=== PATIENT | female | born 1995 | race Caucasian/White ===

== ENCOUNTER 2020-01-22 09:34 | Observation (INO) ==
[2020-01-22] MEDS ORDERED: DEXAMETHASONE SOD INJ 10 MG/ML VIAL IV ONE (10:01)
[2020-01-22] MEDS ORDERED: ALBUT/IPRATROP 3MG/0.5MG NEB 3 ML VIAL NEB STA (10:02)
--- NOTE | 2020-01-22 10:09 | Emergency Department Note ---
History of Present Illness General Chief complaint: Shortness of Breath/Dyspnea Stated complaint: SOB Time Seen by Provider: 01/22/20 09:44 History of Present Illness Maximum Pain Intensity: 6 This is a 24-year-old female that presents to the emergency department via private vehicle with complaints of "shortness of breath". The patient notes a history of trigeminal neuralgia and asthma. 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 She notes that last evening she began with some rhinorrhea and then this progressed throughout the day causing her at 3 AM today to wake up and no trouble breathing. She notes a barking-like cough and notes trouble breathing secondary to a constriction she feels in the lower throat/neck region. She denies any choking or possible foreign bodies. Patient denies any chest pain but does note some shortness of breath. She notes that the coughing continues. She denies any history of Covid/exposure to Covid that she is aware of. Current discomfort 09/09. Home Medications Home Medications Medication Instructions Recorded Confirmed Type gabapentin 600 mg PO TID 01/22/20 01/22/20 History montelukast 10 mg PO DAILY 01/22/20 01/22/20 History norgestimate-ethinyl estradiol 1 tab PO DAILY 01/22/20 01/22/20 History [Previfem] [id number]-FG-gbfhsjkm-guaifen 2 tab PO Q6H PRN 01/22/20 01/22/20 History [Tylenol Cold and Flu Severe] sertraline [Zoloft] 75 mg PO DAILY 01/22/20 01/22/20 History fluticasone propionate [Flovent 2 inh INHALATION BID PRN 30 Days 01/23/20 Rx HFA] #10.6 g Allergies Allergy/AdvReac Type Severity Reaction Status Date / Time ibuprofen Allergy hives/heart Unverified 01/22/20 10:32 racing Past Med/Surg History Medical History (Updated 01/23/20 @ 16:13 by Taz Santo PA-C) Asthma Trigeminal neuralgia Surgical History No pertinent past surgical history Social History Smoking Status: Never smoker Second Hand Exposure: No; Hx Alcohol Use: No Hx Substance Use: No Preferred Language: Kosovan Communication Ability: Effective Residential Glazier Required: No Beliefs That Will Affect Care: None Current Living Situation: Spouse Feels Safe at Home: Yes Assistive Devices: None Review of Systems A total of 10 systems reviewed and were otherwise negative Physical Exam Vital Signs Vital Signs - 24 hr 01/22/20 16:50 Pulse Rate [Apical] 102 H Respiratory Rate 24 Blood Pressure [Right Arm] 121/68 Blood Pressure Mean [Right Arm] 85 Pulse Oximetry 98 Oxygen Delivery Method Room Air VITAL SIGNS - Vital signs and nursing notes were reviewed. Stable and afebrile. Entry vital signs are positive for that of increased respiratory rate at 30/minute as well as a pulse rate of 111 bpm. GENERAL -24-year-old female appearing her stated age who is in no acute distress. Communicates well with provider and answers questions appropriately. SKIN - Without rashes. HEAD - NC/AT. EYES - PERRL with EOMI bilaterally. Sclera anicteric. EARS - No deformities of external structures noted on gross examination bilat erally. NOSE - Midline and without cyanosis. No epistaxis or purulent drainage noted. Septum midline without deviation or septal hematoma noted. MOUTH/OROPHARYNX - Without perioral cyanosis. Buccal mucosa pink and moist and without leukoplakia. Tongue midline with equal elevation of palate bilaterally. No tonsillar hypertrophy, erythema, or exudates noted. Good dentition noted. NECK - Neck with FROM. Supple to palpation. Mild cobblestoning to the posterior pharynx. The airway is widely patent. No trismus. No drooling. Good lymphadenopathy noted. No nuchal rigidity. LUNGS - Chest wall symmetric without accessory muscle use, intercostals retractions, or central cyanosis. Normal vesicular breath sounds CTA B/L. No wheezing. There is inspiratory stridor noted. CARDIAC - RRR with S1/S2. No murmur, rubs, or gallops appreciated. EXTREMITIES - No clubbing or peripheral cyanosis. No pretibial edema present.+5/5 strength noted in UE/LE bilaterally. NEUROLOGIC - Cranial nerves II through XII grossly intact. Sensory intact to light touch throughout. PSYCH - A&O, and cooperates fully with examiner. Pt is very pleasant and interacts well with examiner. Course Administered Medications Cetirizine HCl (Cetirizine Hcl 10 Mg Tablet) 10 mg PO QAM MONIQUE Stop: 11/22/20 08:59 Last Admin: 01/23/20 08:27 Dose: 10 mg Documented by: [id number] Epinephrine (Racepinephrine 2.25% Nebu Soln 0.5 Ml Vial) 0.5 ml NEB Q4R MONIQUE Stop: 02/21/20 20:44 Last Admin: 01/23/20 15:50 Dose: 0.5 ml Documented by: [id number] Admin: 01/23/20 11:12 Dose: 0.5 ml Documented by: [id number] Admin: 01/23/20 07:13 Dose: 0.5 ml Documented by: [id number] Admin: 01/23/20 03:00 Dose: 0.5 ml Documented by: [id number] Admin: 01/22/20 22:54 Dose: 0.5 ml Documented by: [id number] Admin: 01/22/20 20:50 Dose: 0.5 ml Documented by: [id number] Fluticasone/Vilanterol (Fluticasone/Vilanterol 100/25mcg 14 Puffs/Inhaler) 1 puffs INH DAILY MONIQUE; Protocol Stop: 02/22/20 11:29 Last Admin: 01/23/20 13:10 Dose: 1 puffs Documented by: [id number] Gabapentin (Gabapentin 600 Mg Tab) 600 mg PO TID [facility] Stop: 02/21/20 20:59 Last Admin: 01/23/20 13:10 Dose: 600 mg Documented by: [id number] Admin: 01/23/20 08:27 Dose: 600 mg Documented by: [id number] Admin: 01/22/20 22:41 Dose: 600 mg Documented by: [id number] Guaifenesin/Codeine Phosphate (Guaifenesin/Codeine 200mg/20mg 10ml Udc) 10 ml PO Q4H PRN PRN Reason: Cough Stop: 02/21/20 20:36 Last Admin: 01/23/20 07:02 Dose: 10 ml Documented by: [id number] Famotidine 20 mg/ Syringe 5 mls @ 2.5 mls/min IV BID MONIQUE Stop: 02/21/20 20:59 Last Admin: 01/23/20 08:32 Dose: 2.5 mls/min Documented by: [id number] Admin: 01/22/20 22:40 Dose: 2.5 mls/min Documented by: [id number] Menthol (Cough Drop (Sugar Free) Alma 24 Alma/1 Box) 1 alma BUCCAL PRN PRN PRN Reason: Sore Throat Stop: 02/22/20 06:50 Last Admin: 01/23/20 07:02 Dose: 1 alma Documented by: [id number] Miscellaneous (*Previfem*Order Awaiting Action) 1 ea N/A QS MONIQUE Stop: 02/22/20 00:00 Last Admin: 01/23/20 07:45 Dose: Not Given Documented by: [id number] Admin: 01/23/20 07:02 Dose: Not Given Documented by: [id number] Montelukast Sodium (Montelukast Sodium 10 Mg Tablet) 10 mg PO DAILY MONIQUE Stop: 02/22/20 08:59 Last Admin: 01/23/20 08:27 Dose: 10 mg Documented by: [id number] Sertraline HCl (Sertraline Hcl 50 Mg Tablet) 75 mg PO DAILY MONIQUE Stop: 02/22/20 08:59 Last Admin: 01/23/20 09:00 Dose: 75 mg Documented by: [id number] Discontinued Medications Albuterol (Albut/Ipratrop 3mg/0.5mg Neb 3 Ml Vial) 3 ml NEB NOW STA Stop: 01/22/20 10:03 Last Admin: 01/22/20 13:57 Dose: Not Given Documented by: [id number] Cetirizine HCl (Cetirizine Hcl 10 Mg Tablet) 10 mg PO NOW ONE Stop: 01/22/20 20:45 Last Admin: 01/22/20 22:40 Dose: 10 mg Documented by: [id number] Dexamethasone (Dexamethasone Sod Inj 10 Mg/Ml Vial) 10 mg IV NOW ONE Stop: 01/22/20 10:02 Last Admin: 01/22/20 10:48 Dose: 10 mg Documented by: [id number] Epinephrine (Racepinephrine 2.25% Nebu Soln 0.5 Ml Vial) 0.5 ml NEB NOW STA Stop: 01/22/20 13:57 Last Admin: 01/22/20 13:58 Dose: 0.5 ml Documented by: [id number] Epinephrine (Racepinephrine 2.25% Nebu Soln 0.5 Ml Vial) 0.5 ml NEB NOW STA Stop: 01/22/20 13:59 Last Admin: 01/22/20 14:11 Dose: 0.5 ml Documented by: [id number] Sodium Chloride (Nss 1000ml) 1,000 mls @ 999 mls/hr IV .Q1H1M MONIQUE Stop: 01/22/20 11:15 Last Infusion: 01/22/20 11:42 Dose: 0 mls/hr Documented by: [id number] Admin: 01/22/20 10:49 Dose: 999 mls/hr Documented by: [id number] Magnesium Sulfate/Dextrose (Magnesium Sulfate / D5w) 1 gm in 100 mls @ 50 mls/hr IV Q2H MONIQUE Stop: 01/23/20 00:59 Last Infusion: 01/23/20 02:45 Dose: 0 mls/hr Documented by: [id number] Admin: 01/23/20 00:34 Dose: 50 mls/hr Documented by: [id number] Infusion: 01/23/20 00:34 Dose: 50 mls/hr Documented by: [id number] Admin: 01/22/20 22:42 Dose: 50 mls/hr Documented by: [id number] Influenza Virus Vaccine Quadrival (Influenza Virus Quad Vaccine 0.5 Ml Syr) 0.5 ml IM .ONCE ONE Stop: 01/23/20 09:06 Last Admin: 01/23/20 13:12 Dose: 0.5 ml Documented by: [id number] Ioversol (Ioversol 100ml) 93 ml IV ONCE ONE Stop: 01/22/20 15:24 Last Admin: 01/22/20 15:24 Dose: 93 ml Documented by: [id number] Pneumococcal Polyvalent Vaccine (Pneumococcal Polysaccharides 25 Mcg/0.5 Ml Vial/Syr) 25 mcg IM .ONCE ONE Stop: 01/23/20 09:06 Last Admin: 01/23/20 13:11 Dose: 25 mcg Documented by: [id number] Medical Decision Making Laboratory Data Result diagrams: 01/22/20 10:55 01/22/20 10:55 Lab Results 01/22/20 01/22/20 01/22/20 Range/Units 10:55 10:55 10:55 WBC 9.47 (4.8-10.8) K/uL RBC 4.58 (4.2-5.4) M/uL Hgb 13.9 (12.0-16.0) g/dL Hct 41.1 (37-47) % MCV 89.7 (80-100) fL MCH 30.3 (25-34) pg MCHC 33.8 (32-36) g/dL RDW Std Deviation 43.2 (36.4-46.3) fL RDW Coeff of Tammi 13.1 (11.5-14.5) % Plt Count 277 (130-400) K/uL MPV 10.3 (7.4-10.4) fL Immature Gran % (Auto) 0.2 % Neut % (Auto) 73.5 % Lymph % (Auto) 20.4 % [place] % (Auto) 5.0 % Eos % (Auto) 0.7 % Baso % (Auto) 0.2 % Neut # (Auto) 6.96 H (1.4-6.5) K/uL Lymph # (Auto) 1.93 (1.2-3.4) K/uL [place] # (Auto) 0.47 (0.11-0.59) K/uL Eos # (Auto) 0.07 (0-0.5) K/uL Baso # (Auto) 0.02 (0-0.2) K/uL Immature Gran # (Auto) 0.02 (0.00-0.02) K/uL PT 10.1 (9.0-12.0) Seconds INR 1.0 (0.9-1.1) APTT 27.4 (21.0-31.0) Seconds PTT Ratio 1.0 Sodium 139 (136-145) mmol/L Potassium 3.6 (3.5-5.1) mmol/L Chloride 108 H (98-107) mmol/L Carbon Dioxide 25 (21-32) mmol/L Anion Gap 5.0 (3-11) BUN 10 (7-18) mg/dl Creatinine 0.68 (0.6-1.2) mg/dl Est Cr Clr Drug Dosing Not Reportable Est GFR ( Amer) 141.9 Est GFR (Non-Af Amer) 122.4 BUN/Creatinine Ratio 14.0 (10-20) Glucose 108 H (70-99) mg/dl Calcium 8.6 (8.5-10.1) mg/dl Total Bilirubin 0.4 (0.2-1) mg/dl AST 13 L (15-37) U/L ALT 23 (12-78) U/L Alkaline Phosphatase 102 (45-117) U/L Troponin I < 0.015 (0-0.045) ng/ml Total Protein 7.4 (6.4-8.2) gm/dl Albumin 3.3 L (3.4-5.0) gm/dl Globulin 4.1 H (2.5-4.0) gm/dl Albumin/Globulin Ratio 0.8 L (0.9-2) TSH 1.250 (0.300-4.500) uIu/ml HCG, Qual (Negative) COVID-19 Eval Order COVID-19 PCR (Negative) Nasopharyn COVID-19 PCR 01/22/20 01/22/20 01/22/20 Range/Units 10:55 10:55 10:55 WBC (4.8-10.8) K/uL RBC (4.2-5.4) M/uL Hgb (12.0-16.0) g/dL Hct (37-47) % MCV (80-100) fL MCH (25-34) pg MCHC (32-36) g/dL RDW Std Deviation (36.4-46.3) fL RDW Coeff of Tammi (11.5-14.5) % Plt Count (130-400) K/uL MPV (7.4-10.4) fL Immature Gran % (Auto) % Neut % (Auto) % Lymph % (Auto) % [place] % (Auto) % Eos % (Auto) % Baso % (Auto) % Neut # (Auto) (1.4-6.5) K/uL Lymph # (Auto) (1.2-3.4) K/uL [place] # (Auto) (0.11-0.59) K/uL Eos # (Auto) (0-0.5) K/uL Baso # (Auto) (0-0.2) K/uL Immature Gran # (Auto) (0.00-0.02) K/uL PT (9.0-12.0) Seconds INR (0.9-1.1) APTT (21.0-31.0) Seconds PTT Ratio Sodium (136-145) mmol/L Potassium (3.5-5.1) mmol/L Chloride (98-107) mmol/L Carbon Dioxide (21-32) mmol/L Anion Gap (3-11) BUN (7-18) mg/dl Creatinine (0.6-1.2) mg/dl Est Cr Clr Drug Dosing Est GFR ( Amer) Est GFR (Non-Af Amer) BUN/Creatinine Ratio (10-20) Glucose (70-99) mg/dl Calcium (8.5-10.1) mg/dl Total Bilirubin (0.2-1) mg/dl AST (15-37) U/L ALT (12-78) U/L Alkaline Phosphatase (45-117) U/L Troponin I (0-0.045) ng/ml Total Protein (6.4-8.2) gm/dl Albumin (3.4-5.0) gm/dl Globulin (2.5-4.0) gm/dl Albumin/Globulin Ratio (0.9-2) TSH (0.300-4.500) uIu/ml HCG, Qual Negative (Negative) COVID-19 Eval Order Covid19 Sent to [facility] COVID-19 PCR (Negative) Nasopharyn COVID-19 PCR Cancelled 01/22/20 Range/Units 10:55 WBC (4.8-10.8) K/uL RBC (4.2-5.4) M/uL Hgb (12.0-16.0) g/dL Hct (37-47) % MCV (80-100) fL MCH (25-34) pg MCHC (32-36) g/dL RDW Std Deviation (36.4-46.3) fL RDW Coeff of Tammi (11.5-14.5) % Plt Count (130-400) K/uL MPV (7.4-10.4) fL Immature Gran % (Auto) % Neut % (Auto) % Lymph % (Auto) % [place] % (Auto) % Eos % (Auto) % Baso % (Auto) % Neut # (Auto) (1.4-6.5) K/uL Lymph # (Auto) (1.2-3.4) K/uL [place] # (Auto) (0.11-0.59) K/uL Eos # (Auto) (0-0.5) K/uL Baso # (Auto) (0-0.2) K/uL Immature Gran # (Auto) (0.00-0.02) K/uL PT (9.0-12.0) Seconds INR (0.9-1.1) APTT (21.0-31.0) Seconds PTT Ratio Sodium (136-145) mmol/L Potassium (3.5-5.1) mmol/L Chloride (98-107) mmol/L Carbon Dioxide (21-32) mmol/L Anion Gap (3-11) BUN (7-18) mg/dl Creatinine (0.6-1.2) mg/dl Est Cr Clr Drug Dosing Est GFR ( Amer) Est GFR (Non-Af Amer) BUN/Creatinine Ratio (10-20) Glucose (70-99) mg/dl Calcium (8.5-10.1) mg/dl Total Bilirubin (0.2-1) mg/dl AST (15-37) U/L ALT (12-78) U/L Alkaline Phosphatase (45-117) U/L Troponin I (0-0.045) ng/ml Total Protein (6.4-8.2) gm/dl Albumin (3.4-5.0) gm/dl Globulin (2.5-4.0) gm/dl Albumin/Globulin Ratio (0.9-2) TSH (0.300-4.500) uIu/ml HCG, Qual (Negative) COVID-19 Eval Order COVID-19 PCR NEGATIVE (Negative) Nasopharyn COVID-19 PCR Imaging Data Radiologist's Impression: XR chest 1V portable HISTORY: 24 years-old Female dyspnea, stridor acute shortness of breath with stridor COMPARISON: None TECHNIQUE: Portable AP view of the chest FINDINGS: Cardiomediastinal and hilar silhouettes are within normal limits. No pneu mothorax, pleural effusion, airspace consolidation or overt pulmonary edema. Bones of the chest appear grossly intact. IMPRESSION: No acute process. ACT 112: Negative or not required by law. The above report was generated using voice recognition software. It may contain grammatical, syntax or spelling errors. Electronically signed by: Abdifatah Raymond M.D. 01/22/2020 12:31 PM XR soft tissue neck HISTORY: 24 years-old Female stridor COMPARISON: Chest radiograph of same day TECHNIQUE: 2 views of the soft tissues of the neck FINDINGS: The epiglottis and aryepiglottic folds are unremarkable. No prevertebral soft tissue swelling or opaque foreign body. The imaged lung apices appear clear. Straightening of the normal cervical lordosis. IMPRESSION: Unremarkable appearance of the soft tissues of the neck. ACT 112: Negative or not required by law. The above report was generated using voice recognition software. It may contain grammatical, syntax or spelling errors. Electronically signed by: Abdifatah Raymond M.D. 01/22/2020 12:[address] SCAN OF THE NECK WITH IV CONTRAST CLINICAL HISTORY: Stridor COMPARISON STUDY: Radiographs of the neck dated 01/22/2020. TECHNIQUE: Following the IV administration of 93 cc of Optiray 320, CT scan of the soft tissues of the neck was performed from the skull base to the upper chest. Images are reviewed in the axial, sagittal, and coronal planes. IV contrast was administered without complication. A dose lowering technique was utilized adhering to the principles of ALARA. CT DOSE: 467.98 mGy.cm FINDINGS: Pharynx: The nasopharynx, oropharynx, and laryngeal pharynx are normal in appearance. The pharyngeal airway is widely patent. There is no evidence of mass lesion. The vocal cords are symmetric. The parapharyngeal fat is well maintained. The prevertebral/retropharyngeal soft tissues are within normal limits. The epiglottis is normal. Lymphadenopathy: No cervical lymphadenopathy is seen Thyroid: Normal in size and attenuation. Salivary glands: The parotid and submandibular glands are within normal limits. Brain parenchyma: The visualized brain parenchyma at the skull base is normal in appearance. Vascular structures: Unremarkable. Skeletal structures: Imaged portions of the calvarium at the skull base are within normal limits. The cervical spine appears intact. No lytic or blastic lesion is seen. Orbits: The bony orbits are intact. Orbital contents are normal in appearance. Sinuses and mastoids: Trace mucosal thickening is noted in the left maxillary antrum, the sphenoid sinus, and the left ethmoid sinuses. The mastoid air cells are well pneumatized. Lung apices: Visualized apical lung parenchyma is clear. IMPRESSION: No acute abnormality is identified. ACT 112: Negative or not required by law. Electronically signed by: Kaden Duque M.D. 01/22/2020 3:44 PM MDM Narrative Patient was seen and evaluated as above in room C9. Review was performed of nursing notes and vital signs. After obtaining a thorough history and physical examination the above work up was performed. Patient presents to us today with predominantly inspiratory stridor, cough and rhinorrhea. I will note that the patient is currently being seen during the COVID-19 pandemic. 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 IV access was established. Labs were drawn. Although I did initially ordered DuoNeb I would note that there is no lower lung field wheezing, rather the stridor is coming from the upper airway. Potentially vocal cord in etiology however certainly other more emergent differentials were considered. A chest x- ray and soft tissue neck x-ray was ordered. These are quite unremarkable. This is reassuring. The patient was given a breathing treatment of racemic epinephrine and had near immediate relief. She was feeling much better. There is no leukocytosis or anemia. No emergent metabolic disturbance. test negative. The patient was observed here for about 2 hours post racemic epinephrine treatment and continues to do well but then it seemed as though her symptoms began to return. For this reason she was given a second breathing kahlil atment. She again had great improvement. She was given Decadron here. Options of care were discussed with the patient. Given that she has received 2 rounds of racemic epi here discussed the case with the attending physician and decided upon a CT soft tissue neck with to rule out any other emergent etiology within the airway not observed on physical examination. This was essentially negative. I discussed options with the patient and patient is concerned given her return of symptoms despite treatments that this will likely return home and is worried about her breathing. I believe would be reasonable to have the patient admitted to the hospital for further evaluation and trending her clinical status overnight. Patient is in agreement and would prefer this. I discussed this with the attending physician as well as the hospitalist. Please refer to further documentation regarding her stay. While in the department, I personally reevaluated the patient several times via phone and each time the patient was found to be resting comfortably but did have return of the stridor. The patient was educated upon management, educated upon todays findings/results, educated upon importance of follow up from today's visit, educated upon symptoms in which to return, had questions answered prior to discharge, verbalized understanding, and was discharged home in good condition. Case was discussed with the attending physician. An order was placed for continuous cardiac monitoring. The monitor shows a rate of 111 with sinus tachycardic rhythm. I attest that I have personally reviewed the patient medication list. I attest that I have reviewed the patient's blood pressure and it was found to be [] GCS: 15 In the evaluation and treatment of this patient the following differential diag noses were entertained: [] Impression & Plan Inspiratory stridor, Acute dyspnea, Cough, Rhinorrhea Discharge Plan Visit Data Chief Complaint: Shortness of Breath/Dyspnea Stated Complaint: SOB ED Provider: Russell Quinteros ED Midlevel Provider: Taz Santo Discharge Problem: Inspiratory stridor, Acute dyspnea, Cough, Rhinorrhea Patient Disposition: Admitted As Inpatient Condition: Good Discharge Instructions Interventions: ED Discharge Assessment Last Done: 01/22/20 19:56
[2020-01-22] MEDS ORDERED: SODIUM CHLORIDE 0.9% 1000ML 1,000 ML IV SCH (10:15)
[2020-01-22 11:12] LABS: Basophils # (auto) 0.02 K/uL (0-0.2); Basophils % (auto) 0.2 %; Eosinophils # (auto) 0.07 K/uL (0-0.5); Eosinophils % (auto) 0.7 %; Hematocrit (blood only) 41.1 % (37-47); Hemoglobin 13.9 g/dL (12.0-16.0); Immature Granulocytes # (auto) 0.02 K/uL (0.00-0.02); Immature Granulocytes % (auto) 0.2 %; Lymphocytes # (auto) 1.93 K/uL (1.2-3.4); Lymphocytes % (auto) 20.4 %; Mean Corpuscular Hemoglobin 30.3 pg (25-34); Mean Corpuscular Hgb Conc 33.8 g/dL (32-36); Mean Corpuscular Volume 89.7 fL (80-100); Mean Platelet Volume 10.3 fL (7.4-10.4); Monocytes # (auto) 0.47 K/uL (0.11-0.59); Neutrophils # (auto) 6.96 K/uL (1.4-6.5); Neutrophils % (auto) 73.5 %; Platelet Count 277 K/uL (130-400); RDW Coefficient of Variation 13.1 % (11.5-14.5); RDW Standard Deviation 43.2 fL (36.4-46.3); Red Blood Count 4.58 M/uL (4.2-5.4); White Blood Count 9.47 K/uL (4.8-10.8)
[2020-01-22 11:26] LABS: Partial Thromboplastin Time 27.4 Seconds (21.0-31.0); Prothrombin Time 10.1 Seconds (9.0-12.0)
[2020-01-22 11:33] LABS: Pregnancy Test, Serum Negative (Negative)
[2020-01-22 11:35] LABS: Alanine Aminotransferase 23 U/L (12-78); Albumin Level 3.3 gm/dl (3.4-5.0); Aspartate Aminotransferase 13 U/L (15-37); Blood Urea Nitrogen 10 mg/dl (7-18); Calcium 8.6 mg/dl (8.5-10.1); Carbon Dioxide 25 mmol/L (21-32); Chloride 108 mmol/L (98-107); Est GFR (African American) 141.9; Est GFR (Non-African American) 122.4; Glucose 108 mg/dl (70-99); Potassium 3.6 mmol/L (3.5-5.1); Sodium 139 mmol/L (136-145)
[2020-01-22 11:46] LABS: Albumin Globulin Ratio 0.8 (0.9-2); Alkaline Phosphatase 102 U/L (45-117); Bilirubin,Total 0.4 mg/dl (0.2-1); Globulin 4.1 gm/dl (2.5-4.0); Total Protein 7.4 gm/dl (6.4-8.2); Troponin I < 0.015 ng/ml (0-0.045)
--- NOTE | 2020-01-22 12:32 | XRay Report ---
XR chest 1V portable HISTORY: 24 years-old Female dyspnea, stridor acute shortness of breath with stridor COMPARISON: None TECHNIQUE: Portable AP view of the chest FINDINGS: Cardiomediastinal and hilar silhouettes are within normal limits. No pneumothorax, pleural effusion, airspace consolidation or overt pulmonary edema. Bones of the chest appear grossly intact. IMPRESSION: No acute process. ACT 112: Negative or not required by law. The above report was generated using voice recognition software. It may contain grammatical, syntax o r spelling errors. Electronically signed by: Abdifatah Raymond M.D. 01/22/2020 12:31 PM
--- NOTE | 2020-01-22 12:33 | XRay Report ---
XR soft tissue neck HISTORY: 24 years-old Female stridor COMPARISON: Chest radiograph of same day TECHNIQUE: 2 views of the soft tissues of the neck FINDINGS: The epiglottis and aryepiglottic folds are unremarkable. No prevertebral soft tissue swelling or opaq ue foreign body. The imaged lung apices appear clear. Straightening of the normal cervical lordosis. IMPRESSION: Unremarkable appearance of the soft tissues of the neck. ACT 112: Negative or not required by law. The above report was generated using voice recognition software. It may contain grammatical, syntax o r spelling errors. Electronically signed by: Abdifatah Raymond M.D. 01/22/2020 12:32 PM
--- NOTE | 2020-01-22 13:07 | Electrocardiogram Report ---
Test Reason : Blood Pressure : / mmHG Vent. Rate : 090 BPM Atrial Rate : 090 BPM P-R Int : 142 ms QRS Dur : 076 ms QT Int : 348 ms P-R-T Axes : 027 009 004 degrees QTc Int : 425 ms Normal sinus rhythm Normal ECG No previous ECGs available Confirmed by Cecilio Desir ([id number]) on 01/22/2020 1:07:33 PM Referred By: REFERRED SELF Confirmed By:Cecilio Desir
[2020-01-22] MEDS ORDERED: RACEPINEPHRINE 2.25% NEBU SOLN 0.5 ML VIAL NEB STA ×2 (13:56→13:58)
[2020-01-22] MEDS ORDERED: IOVERSOL 100ml IV ONE (15:23)
--- NOTE | 2020-01-22 15:46 | CT Scan Report ---
CT SCAN OF THE NECK WITH IV CONTRAST CLINICAL HISTORY: Stridor COMPARISON STUDY: Radiographs of the neck dated 01/22/2020. TECHNIQUE: Following the IV administration of 93 cc of Optiray 320, CT scan of the soft tissues of th e neck was performed from the skull base to the upper chest. Images are reviewed in the axial, sagitt al, and coronal planes. IV contrast was administered without complication. A dose lowering techniqu e was utilized adhering to the principles of ALARA. CT DOSE: 467.98 mGy.cm FINDINGS: Pharynx: The nasopharynx, oropharynx, and laryngeal pharynx are normal in appearance. The pharyngeal airway is widely patent. There is no evidence of mass lesion. The vocal cords are symmetric. The para pharyngeal fat is well maintained. The prevertebral/retropharyngeal soft tissues are within normal li mits. The epiglottis is normal. Lymphadenopathy: No cervical lymphadenopathy is seen Thyroid: Normal in size and attenuation. Salivary glands: The parotid and submandibular glands are within normal limits. Brain parenchyma: The visualized brain parenchyma at the skull base is normal in appearance. Vascular structures: Unremarkable. Skeletal structures: Imaged portions of the calvarium at the skull base are within normal limits. The cervical spine appears intact. No lytic or blastic lesion is seen. Orbits: The bony orbits are intact. Orbital contents are normal in appearance. Sinuses and mastoids: Trace mucosal thickening is noted in the left maxillary antrum, the sphenoid si nus, and the left ethmoid sinuses. The mastoid air cells are well pneumatized. Lung apices: Visualized apical lung parenchyma is clear. IMPRESSION: No acute abnormality is identified. ACT 112: Negative or not required by law. Electronically signed by: Kaden Duque M.D. 01/22/2020 3:44 PM
--- NOTE | 2020-01-22 17:20 | History & Physical Report ---
Date of Service January 22, 2020 Assessment & Plan (1) Inspiratory stridor: Patient has what appears to be some vocal cord dysfunction seems to have some respiratory stridor. Patient did have greatest improvement was racemic epinephrine not with albuterol. His unremarkable labs including a negative Covid test. Soft tissue neck CT is unremarkable. 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 Her breathing is more dysphonic and was helped with racemic epinephrine. Patient states that she has similar episodes typically in the springtime last for a few days. In the emergency department she had improvement with racemic epinephrine but rapidly returned she has marked change in her sound of her voice according to her she does sound to have more of a dysphonic tone to her voice. She is significant barking cough and she does have some what is described possibly is viral cobblestoning the back of her throat. Covid test was negative. 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 Allergies Allergy/AdvReac Type Severity Reaction Status Date / Time ibuprofen Allergy hives/heart Unverified 01/22/20 10:32 racing Home Medications Home Medications Medication Instructions Recorded Confirmed Type gabapentin 600 mg PO TID 01/22/20 01/22/20 History montelukast 10 mg PO DAILY 01/22/20 01/22/20 History norgestimate-ethinyl estradiol 1 tab PO DAILY 01/22/20 01/22/20 History [Previfem] noicnurfq-IB-ujydtjuv-guaifen 2 tab PO Q6H PRN 01/22/20 01/22/20 History [Tylenol Cold and Flu Severe] sertraline [Zoloft] 75 mg PO DAILY 01/22/20 01/22/20 History Past Med/Surg History Social History Feels Safe at Home: Yes Review of Systems Review of Systems: Mild to moderate distress and fatigue no headache, blurry or double vision speech changes, no drooling no chest pain, pressure or palpitations shortness of breath, non productive cough, no wheezes no abdominal pain, nausea or vomiting, diarrhea or constipation no dysuria, hematuria or frequency no focal joint pain or swelling no back pain, CVA tenderness or radicular pain no bruising, bleeding or rashes no focal signs of weakness or numbness or altered sensation no complaints of anxiety or depression. Physical Exam Physical Exam: The patient appeared well nourished and normally developed. Vital signs as documented Oropharynx is with minor posterior erythema with minor lymphadenopathy. Head exam is normocephalic atraumatic no scleral icterus Neck is without JVD, thyromegaly, or carotid bruits. No overt stridor is heard Lungs are clear to auscultation, no focal loss of breath sounds Cardiac exam, Rhythm is regular.. No murmurs, rubs or gallops. Abdominal exam reveals normal bowel sounds, soft non tender, no masses Extremities are nonedematous and both pedal pulses are present Neurologic exam is alert and oriented, no focal loss of strength or sensation Skin is without bruises or rashes Psychologically is without concerns for anxiety or depression. Results & Data Results & Data ([facility]) Vital Signs (Past 12 Hours) Vital Signs Pulse Pulse Resp BP BP Pulse Ox 01/22/20 16:50 102 H 24 121/68 98 01/22/20 14:40 115 H 16 95 01/22/20 14:11 99 H 16 96 01/22/20 13:07 100 H 16 122/77 96 01/22/20 11:51 99 H 18 145/85 H 95 01/22/20 11:25 113 H 14 99 01/22/20 09:39 111 H 30 H 140/87 100 Code Status & VTE Plan VTE Prophylaxis Plan VTE Prophylaxis will be ordered: Yes PG Care Time/CCT Total # of Minutes Spent Total Time Spent with Patient: Total time spent is greater than 50% in coordination of care (as documented) at patient's floor/unit and/or counseling patient: Coding Level of Care Code 87929 OBS Care - Level 3 Diagnoses Inspiratory stridor R06.1 Trigeminal neuralgia G50.0 Depression F32.9
[2020-01-22] MEDS ORDERED: ONDANSETRON INJ 2 MG/ML 2 ML VIAL IV PRN (20:37)
[2020-01-22] MEDS ORDERED: LORazepam 0.25 MG/0.5 ML VIAL IV PRN (20:37)
[2020-01-22] MEDS ORDERED: ACETAMINOPHEN 325 MG TAB PO PRN (20:37)
[2020-01-22] MEDS ORDERED: CETIRIZINE HCL 10 MG TABLET PO ONE (20:44)
[2020-01-22] MEDS ORDERED: ALBUTEROL 0.5% NEB SOLN 2.5 MG/0.5 ML VIAL NEB PRN (20:45)
[2020-01-22] MEDS ORDERED: diphenhydrAMINE 50 MG/ML VIAL IV PRN (20:45)
[2020-01-22] MEDS: RACEPINEPHRINE 2.25% NEBU SOLN 0.5 ML VIAL NEB SCH ×2 (20:50→22:54)
[2020-01-22] MEDS: FAMOTIDINE 20 MG in SYRINGE 3 ML IV SCH (22:40)
[2020-01-22] MEDS: GABAPENTIN 600 MG TAB PO SCH (22:41)
[2020-01-22] MEDS: MAGNESIUM SULFATE / D5W 1 GM/100 ML BAG IV SCH (22:42)
[2020-01-23 00:26] LABS: Appearance Urine Clear (Clear); Bacteria Urine Automated Negative (Negative); Bilirubin Urine Negative (Negative); Blood Urine 1+ (Negative); Color Urine Yellow; Glucose Urine UA Negative (Negative); Ketones Urine Trace (Negative); Leukocyte Esterase Urine Negative (Negative); Nitrite Urine Negative (Negative); Protein Urine Negative (Negative); Specific Gravity Urine 1.027 (1.000-1.030); Urobilinogen Urine Negative (Negative); WBC Urine Automated 0 /hpf (0-5); pH Urine 6.5 (4.5-7.5)
[2020-01-23] MEDS: MAGNESIUM SULFATE / D5W 1 GM/100 ML BAG IV SCH (00:34)
[2020-01-23 02:09] LABS: Adenovirus PCR Not Detected (NotDetected); Bordetella parapertussis PCR Not Detected (NotDetected); Bordetella pertussis PCR Not Detected (NotDetected); Chlamydia pneumoniae PCR Not Detected (NotDetected); Coronavirus 229E PCR Not Detected (NotDetected); Coronavirus CoV-2 (COVID19)PCR Not Detected (NotDetected); Coronavirus HKU1 PCR Not Detected (NotDetected); Coronavirus NL63 PCR Not Detected (NotDetected); Coronavirus OC43PCR Not Detected (NotDetected); Human Metapneumovirus PCR Not Detected (NotDetected); Influenza A PCR Not Detected (NotDetected); Influenza B PCR Not Detected (NotDetected); Mycoplasma pneumoniae PCR Not Detected (NotDetected); Parainfluenza Virus 1 PCR Not Detected (NotDetected); Parainfluenza Virus 2 PCR Not Detected (NotDetected); Parainfluenza Virus 3 PCR Not Detected (NotDetected); Parainfluenza Virus 4 PCR Not Detected (NotDetected); Respiratory Syncytial VirusPCR Not Detected (NotDetected)
[2020-01-23 02:12] LABS: Rhinovirus/Enterovirus PCR DETECTED (NotDetected)
[2020-01-23] MEDS: RACEPINEPHRINE 2.25% NEBU SOLN 0.5 ML VIAL NEB SCH ×4 (03:00→15:50)
[2020-01-23] MEDS ORDERED: CHLORASEPTIC 1.4% SOLN 180 ML BTL MT PRN (06:51)
[2020-01-23] MEDS ORDERED: COUGH DROP (SUGAR FREE) LOZ 24 LOZ/1 BOX BUCCAL PRN (06:51)
--- NOTE | 2020-01-23 07:18 | Hospitalist Progress Note ---
Date of Service January 23, 2020 Assessment & Plan (1) Inspiratory stridor: 24 y/o F w/ hx of asthma, trigeminal neuralgia, and depression who presents w/ tachycardic 101. intermittent tachycardia. other vitals wnl. r/o pe risk factors? mg 2.6. other labs ok ecg nsr good improvement w/ racemic epinephrine. albuterol no relief. unremarkable labs including a negative Covid test. Soft tissue neck CT is unremarkable. 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 current sxs not c/w trigeminal neuralgia: continue home gabapentin depression: continue home Zoloft FENGI: regular diet ppx: SCDs full code dispo: (2) Trigeminal neuralgia: (3) Depression: (4) Asthma: Admission and Anticipated Discharge Date Admission Date: January 22, 2020 Subjective Patient states sxs started afternoon presenting as stuffy nose. woke up 3am w/ hardin because of sinus congestion (clear w/ some yellow). coughing (nonproductive) a lot. went back to sleep 6am. when woke up at 8am couldn't breathe. albuterol nebulizer didn't help. got to ed 845am. had the same sxs last spring (couldn't breathe through throat). cough better now. almost 100% better. just has sinus sxs still. + throat discomfort after the epinephrine (burned at top). hurts to swallow cold things. tolerating po. denies hx htn. hardin L sinus hardin yesterday. resolved now. all other ros neg 600mg tid gabapentin for trigeminal neuraligia. receives nerve blocks from [facility]. wears off after 2 months. gets daily HARDIN usually on L, whole head if bad. hx seasonal allergies on daily singulair. advair inhaler when sxs bad. flonase asthma: albuterol nebulizer. duoneb. only uses 1x/wk during allergy season. also has albuterol inhaler. allergic to ibuprofen. depression (moreso anxiety) on zoloft 75 mg. doing well other ros neg heart lung abd pulses legs ok. soft tissue neck ct and xr. no acute process. cxr no acute mild tonsilar swelling at pillars? i did not notice erythema. no exudate. no lad on my exam. CT soft tissues neck labs: enterovirus/rhinovirus+. alb low. ua ok. neg trop. neg tsh. mg 2.6H. H/H ok. kidney function ok todo: double check on epinephrine freq. pt doing much better now. dispo? Review of Systems Review of Systems: Constitutional: Denies fever, chills, weight change Eyes: Denies blurry vision, vision changes ENT: Denies sore throat, sinus pain Cardiovascular: Denies Chest pain, chest pressure, palpitations, extremity swelling Respiratory: Denies shortness of breath, cough, sputum production, difficulty breathing Gastrointestinal: Denies abdominal pain, nausea, vomiting, constipation, diarrhea Genitourinary: Denies urinary symptoms including dysuria Musculoskeletal: Denies weakness, muscle aches/pain, joint aches/pain Neurological: Denies headache, numbness, tingling, focal weakness Physical Exam Physical Exam: General: A&Ox3. NAD. Cooperative. HEENT: Atraumatic, normocephalic. EOMI Pulm: CTAB. -wheezes, -rales, -rhonchi. Symmetrical chest rise. No respiratory distress. Cardiac: RRR, -mrg. Radial pulses intact and symmetrical. Abdominal: Nontender, nondistended, soft. Results & Data Results & Data ([facility]) Vital Signs (Past 12 Hours) Vital Signs Temp Pulse Pulse Pulse Pulse Resp BP 01/23/20 03:00 79 18 01/23/20 00:41 01/22/20 23:35 37 C 87 12 01/22/20 22:55 106 H 16 01/22/20 20:50 101 H 22 01/22/20 19:45 36.7 C 98 H 22 01/22/20 19:30 92 H 19 112/70 BP Pulse Ox Pulse Ox 01/23/20 03:00 97 01/23/20 00:41 97 01/22/20 23:35 145/84 H 96 01/22/20 22:55 97 01/22/20 20:50 99 01/22/20 19:45 143/79 H 97 01/22/20 19:30 Resident Activity Tracking Resident Involvement: Resident Care Provided Care Provided: Adult Hospital Medicine
[2020-01-23] MEDS: GABAPENTIN 600 MG TAB PO SCH ×2 (08:27→13:10)
[2020-01-23] MEDS: FAMOTIDINE 20 MG in SYRINGE 3 ML IV SCH (08:32)
[2020-01-23 08:58] VITALS: TEMP 98.1
[2020-01-23] MEDS ORDERED: SERTRALINE HCL 50 MG TABLET PO SCH (09:00)
[2020-01-23] MEDS ORDERED: MONTELUKAST SODIUM 10 MG TABLET PO SCH (09:00)
[2020-01-23] MEDS ORDERED: CETIRIZINE HCL 10 MG TABLET PO SCH (09:00)
[2020-01-23] MEDS ORDERED: PNEUMOCOCCAL ADMINISTRATION CHARGE ONE (09:05)
[2020-01-23] MEDS ORDERED: INFLUENZA VIRUS QUAD VACCINE 0.5 ML SYR IM ONE (09:05)
[2020-01-23] MEDS ORDERED: INFLUENZA ADMINISTRATION CHARGE ONE (09:05)
[2020-01-23] MEDS ORDERED: PNEUMOCOCCAL POLYSACCHARIDES 25 MCG/0.5 ML VIAL/SYR IM ONE (09:05)
[2020-01-23] MEDS ORDERED: FLUTICASONE/VILANTEROL 100/25MCG 14 PUFFS/INHALER INH SCH (11:30)
[2020-01-23 13:00] VITALS: BP 138/83
[2020-01-23 15:53] VITALS: PULSE 95; O2SAT 96
--- NOTE | 2020-01-23 16:43 | Discharge Summary ---
Date of Service January 23, 2020 Admission HPI Per Admitting Provider Patient presents with some increased shortness of breath with a history of asthma. Her breathing is more dysphonic and was helped with racemic epinephrine. Patient states that she has similar episodes typically in the springtime last for a few days. In the emergency department she had improvement with racemic epinephrine but rapidly returned she has marked change in her sound of her voice according to her she does sound to have more of a dysphonic tone to her voice. She is significant barking cough and she does have some what is described possibly is viral cobblestoning the back of her throat. Covid test was negative. 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 Vital signs as documented Oropharynx is with minor posterior erythema with minor lymphadenopathy. Head exam is normocephalic atraumatic no scleral icterus Neck is without JVD, thyromegaly, or carotid bruits. No overt stridor is heard Lungs are clear to auscultation, no focal loss of breath sounds Cardiac exam, Rhythm is regular.. No murmurs, rubs or gallops. Abdominal exam reveals normal bowel sounds, soft non tender, no masses Extremities are nonedematous and both pedal pulses are present Neurologic exam is alert and oriented, no focal loss of strength or sensation Skin is without bruises or rashes Psychologically is without concerns for anxiety or depression. Principal Diagnosis inspiratory stridor Discharge Exam General: Grossly A&Ox3 NAD. Cooperative. HEENT: Atraumatic, normocephalic. EOMI Pulm: CTAB. -wheezes, -rales, -rhonchi. No respiratory distress. Cardiac: RRR, -mrg. Radial pulses intact and symmetrical. Abdominal: Nontender, nondistended, soft. Discharge Data Allergies Allergy/AdvReac Type Severity Reaction Status Date / Time ibuprofen Allergy hives/heart Unverified 01/22/20 10:32 racing Consultations 01/22/20 16:17 ED Decision to Admit Stat Ordered Studies 01/22/20 13:56 CT soft tissue neck w con Stat Hospital Course (1) Inspiratory stridor: 24 y/o F w/ hx of asthma, trigeminal neuralgia, and depression who presents to [facility] on 01/22/20 w/ SOB of 2 days w/ inspiratory stridor. inspiratory stridor 2/2 most likely viral URI - she presented w/ sinus congestion and nonproductive cough - good improvement w/ racemic epinephrine. albuterol no relief. - unremarkable labs including a negative Covid test. Soft tissue neck CT is unremarkable. admission team noted mild lymphadenopathy in back of her neck consistent with possible viral infection - considered croup vs epiglottitis vs pharyngitis. - dexamethasone 10 given in the ED. Will d/c home on Flovent considering h/o underlying asthma. - overall status on 01/22 looks good - Zrytec for postnasal drip hx asthma. current sxs not c/w trigeminal neuralgia: stable. continue home gabapentin depression: stable. continue home Zoloft full code f/u with PCP in 1 week (2) Trigeminal neuralgia: (3) Depression: (4) Asthma: Total Time Total Time Spent Total Time Spent (In Minutes): Please see attending documentation Discharge Plan Discharge Items Patient Disposition: Home - Self-Care Reason For Visit: RESPIRATORY STRIDOR Discharge Diagnosis: viral URI Condition on Discharge: Good Activity: Per Instructions section Non-emergency contact: Primary Care Provider Call non-emergency contact if: you have any medication questions, your symptoms worsen and you have a fever Follow-up/Referrals: Patsy Garcia MD [Physician] - 02/11/20 8:30 am PCP,NO [Primary Care Provider] - Diet: Regular Addtl Attending Provider Instructions: You were admitted to [facility] on 01/22/20 for airway constriction. We treated you with IV steroids, nebulized epinephrine and inhaler treatments. We used these medicines because in these situations, we are worried about the swelling affecting your airway. You noted that the epinephrine helped your symptoms while the inhaler did not. We checked a blood test that showed you were positive for enterovirus/rhinovirus, one of the bacteria that can cause the common cold. This morning, you stated that your symptoms improved a lot. We are sending you home with a script for Flovent (fluticasone proprionate), a steroid inhaler medication that will help reduce some of the inflammation that has occurred in your throat. While in the hospital, you received a different steroid inhaler called Symbicort, but I switched to generic Flovent because that is the one covered by your insurance. Please continue this for a week, twice a day. Please use a spacer device when you use this. Afterwards, use as needed and follow up with you PCP regarding your asthma regimen. Since the most likely cause is a virus, antibiotics would not help. For your nasal congestion, I recommend Flonase which you can get over the counter at any pharmacy. Continue Zyrtec and montelukast. Other chronic medical conditions: trigeminal neuralgia, continue gapabentin. depression continue Zoloft. Your covid test was negative. Your urine chest xray, and ekg looked ok. We also did some scans (xray and CT) of your neck to look for swelling and it was normal. The equal opportunity counselor will set up a meeting with Dr. Patsy Garcia for a 1 week PCP follow up visit. She is one the the Internal Medicine doctors at [facility]. Pending Studies at Discharge: No Stand-Alone Forms: My [facility] mobli, Smoking Cessation Medications and DC Order Prescriptions: New Flovent HFA 44 mcg/actuation HFA aerosol inhaler 2 inh inhalation BID PRN (Reason: viral URI) 30 Days Qty: 10.6 RF: 2 Continued norgestimate-ethinyl estradiol [Previfem] 0.25-35 mg-mcg Tablet 1 tab PO DAILY RF: 0 gabapentin 600 mg Tablet 600 mg PO TID RF: 0 sertraline [Zoloft] 25 mg Tablet 75 mg PO DAILY RF: 0 montelukast 10 mg Tablet 10 mg PO DAILY RF: 0 Tylenol Cold and Flu Severe [id number] mg Tablet 2 tab PO Q6H PRN (Reason: Cold Symptoms) RF: 0 Discharge Orders: Discharge Order (Routine); Ordered 01/23/20 Ordered By: Bryce Jimenez Admission Data Admit Date/Time: 01/22/20 17:13 Attending Provider: Jody Mcnally Admit Provider: John Thacker Primary Care Provider: PCP,NO Other Providers: John Thacker Other Interventions: Discharge Summary Assessment (RN) Last Done: 01/23/20 12:58 Supervising Physician Co-Signing Physician Notes Resident Physician Supervision Note: I independently interviewed and examined the patient and verified the langley history and physical, reviewed labs and image studies, discussed the case with the resident Dr. Jimenez and agree with the findings and care plan. Resident Activity Tracking Resident Involvement: Resident Care Provided Care Provided: [facility] Medicine
== END 2020-01-23 16:40 | disposition home or self-care (01) ==
LOC: ED 09:34 → 3W 09:34 → SUATTDRO 17:13 → 3W 19:56
DX: G50.0 Trigeminal neuralgia; J45.909 Unspecified asthma, uncomplicated; R06.02 Shortness of breath; F32.9 Major depressive disorder, single episode, unspecified; Z20.828 Contact with and (suspected) exposure to other viral communicable diseases; Z79.899 Other long term (current) drug therapy; R06.1 Stridor; Z88.6 Allergy status to analgesic agent

== ENCOUNTER 2020-09-28 18:43 | Observation (INO) ==
--- NOTE | 2020-09-28 19:22 | Emergency Department Note ---
Impression & Plan Acute flank pain, Fever, Transaminitis ED Provider Note NAME: JULIET REYES AGE: 25 SEX: F : 1995 ARRIVES VIA: Walk-In INFORMANT: Patient, ED PROVIDER(S): Jose Churchill MD Chief Complaint: Flank pain, fever HPI: Patient does present with the above complaints that have been ongoing for the last 1 to 2 days. The patient described the pain in the right back and flank area. The patient was seen in the outpatient setting was referred here for further evaluation and treatment given her fever. Patient describes it as sharp with occasional radiation to the front. The patient does still have an appendix but has had a prior cholecystectomy. Patient denies any bowel or bladder issues. The patient denies any trauma recent heavy lifting twisting or turning. The patient has no saddle anesthesia. Patient denies any cough. Patient denies any shortness of breath or chest pains. Patient denies any his tory of tick bites or rashes. ROS: See HPI for pertinent positives and negatives. A total of 10 systems were reviewed and otherwise negative. Past medical history: See below Surgical history: See below Social history: See below Physical Exam: GENERAL: Uncomfortable in appearance, wearing a mask. EYE EXAM: Normal conjunctiva. PERRL, no anisocoria and EOM's grossly intact w/o pain. NECK: Supple, no nuchal rigidity, no adenopathy, non-tender. No signs of meningismus. LUNGS: Clear to auscultation. Normal chest wall mechanics. HEART: Tachycardic and regular, no MRG. ABDOMEN: Abdomen soft, non-tender, normo-active bowel sounds, no masses, no rebound or guarding. BACK: Right-sided CVA TTP. SKIN: No rashes and no bruising. UPPER EXTREMITIES: Upper extremities are grossly normal. LOWER EXTREMITIES: Grossly normal, no edema. NEURO EXAM: A&O x3, cranial nerves II-XII grossly intact, normal speech, moves all 4 extremities on command w/o issue. Differential diagnoses: Viral syndrome, otitis, pharyngitis, pneumonia, influenza, meningitis, urinary tract infection, sepsis, bacteremia, as well as other pathologies. Course: Patient was seen and evaluated the bedside. Full history physical exam was performed. EKG interpreted by me Sinus tachycardia, rate of 111, normal intervals, normal axis, no obvious ST changes. Imaging Studies: See below Cardiac monitoring: An order was placed for continuous cardiac monitoring. The monitor shows a rate of 112 with sinus tachycardia rhythm. MDM: Patient was seen due to concern for fever and flank pain. Blood work is obtained and the patient was treated with empiric antibiotics and did have a CT of the abdomen pelvis completed. Patient blood work is fairly unremarkable with no obvious signs of urinary infection. Patient did have mild transaminitis. The patient has normal white count and platelet count. Patient denies any known history of tick bites or rashes. Patient CT does not show any acute findings with exception of borderline thickening of the proximal small bowel loops but possible enteritis. Patient has normal appendix. Normal urinary bladder. No concerns of the kidneys or obvious pyelonephritis per stat read. Patient was still having continued pain given the patient's persistent tachycardia pain and fever believe the patient may benefit from continued observation work-up at this time. I did speak with the on-call hospitalist Dr. Aceves and the patient was admitted to the medicine service. Past Med/Surg History Medical History Asthma Cholecystectomy planned Trigeminal neuralgia Surgical History No pertinent past surgical history [place] teeth extracted Family History Father Myocardial infarction Cancer Crohn's disease Grandfather (Paternal) Myocardial infarction Cancer Lung cancer Crohn's disease Denies family history of Ovarian cancer Prostate cancer Breast cancer Colorectal cancer Social History Smoking Status: Never smoker Second Hand Exposure: Yes; Hx Alcohol Use: No Hx Substance Use: No Preferred Language: [place] Communication Ability: Effective Visual Impairment: No Limitations Hearing Ability: Normal [employer] Required: No Beliefs That Will Affect Care: None marital status: Current Living Situation: Spouse current occupational status: employed current occupation: [employer] How many Children do You have: 0 Feels Safe at Home: Yes Safety Concerns: Feels Safe At This Time Childhood Exposure to Second-Hand Smoke: Yes during the past year weight has: remained stable Dental Care, Regularly: Yes Physical Activity Frequency: 1-2 Times per Week Seatbelt Use: always Sunscreen Use: Yes Assistive Devices: None Allergies Allergies Allergy/AdvReac Type Severity Reaction Status Date / Time ibuprofen Allergy hives/heart Verified 09/28/20 17:58 racing indomethacin Allergy hives Verified 09/28/20 17:58 promethazine Allergy hives Verified 09/28/20 17:58 shellfish derived Allergy Swelling Verified 09/28/20 17:58 of lips and throat tizanidine Allergy hives Verified 09/28/20 17:58 Home Meds Home Medications Medication Instructions Recorded Confirmed gabapentin 600 mg PO TID 01/22/20 09/28/20 rizatriptan 10 mg tablet 10 mg PO DIRECTED PRN MDD 30 03/02/20 09/28/20 MG/24 HOURS albuterol sulfate [Ventolin HFA] 2 puff INHALATION DIRECTED PRN 03/24/20 09/28/20 jtebdmu-vzqwwxuijgozn-hlzwnllm 2 tab PO Q6H PRN 09/20/20 09/28/20 [Excedrin Extra Strength] multivitamin 1 tab PO QAM 09/20/20 09/28/20 Previous Rx's Medication Instructions Recorded montelukast 10 mg tablet 10 mg PO QAM #30 tab 04/05/20 Results & Data (ED) Vital Signs Vital Signs - 24 hr 09/28/20 18:48 09/28/20 19:25 09/28/20 19:45 Temperature 38.4 C H 37.4 C Temperature Source Temporal Artery Scan Pulse Rate 117 H 116 H 112 H Pulse Rate from SpO2 Sensor Pulse Rhythm Respiratory Rate 18 18 26 H Respiratory Effort / Characteristics Non-Labored Respiratory Depth Normal Respiratory Pattern Regular Blood Pressure 149/90 H 177/99 H Blood Pressure Mean 109 125 Blood Pressure Position Sitting Pulse Oximetry 99 100 Oxygen Delivery Method Room Air Sepsis Recent Fever Within 48 Hours Yes Sepsis New/Unexplained Change in Mental Status No Sepsis Action Taken by Nursing Physician Notified 09/28/20 20:00 09/28/20 20:15 09/28/20 20:28 Temperature Temperature Source Pulse Rate 113 H 115 H 109 H Pulse Rate from SpO2 Sensor Pulse Rhythm Regular Respiratory Rate 30 H 22 18 Respiratory Effort / Characteristics Respiratory Depth Respiratory Pattern Blood Pressure Blood Pressure Mean Blood Pressure Position Pulse Oximetry 100 Oxygen Delivery Method Room Air Sepsis Recent Fever Within 48 Hours Sepsis New/Unexplained Change in Mental Status Sepsis Action Taken by Nursing 09/28/20 20:30 09/28/20 20:34 09/28/20 20:45 Temperature Temperature Source Pulse Rate 115 H 118 H 112 H Pulse Rate from SpO2 Sensor 112 H Pulse Rhythm Respiratory Rate 28 H 22 28 H Respiratory Effort / Characteristics Non-Labored Respiratory Depth Respiratory Pattern Blood Pressure 143/87 H 138/82 Blood Pressure Mean 105 100 Blood Pressure Position Pulse Oximetry 100 98 98 Oxygen Delivery Method Room Air Sepsis Recent Fever Within 48 Hours Sepsis New/Unexplained Change in Mental Status Sepsis Action Taken by Nursing 09/28/20 21:00 09/28/20 21:15 09/28/20 21:42 Temperature Temperature Source Pulse Rate 119 H 120 H Pulse Rate from SpO2 Sensor 119 H 120 H 116 H Pulse Rhythm Respiratory Rate 18 Respiratory Effort / Characteristics Non-Labored Respiratory Depth Respiratory Pattern Blood Pressure 134/85 126/80 128/71 Blood Pressure Mean 101 95 90 Blood Pressure Position Pulse Oximetry 99 98 96 Oxygen Delivery Method Room Air Room Air Sepsis Recent Fever Within 48 Hours Sepsis New/Unexplained Change in Mental Status Sepsis Action Taken by Nursing 09/28/20 21:45 09/28/20 22:00 09/28/20 22:01 Temperature Temperature Source Pulse Rate 116 H 121 H Pulse Rate from SpO2 Sensor 115 H 116 H 117 H Pulse Rhythm Respiratory Rate 21 22 Respiratory Effort / Characteristics Respiratory Depth Respiratory Pattern Blood Pressure 120/68 145/85 H Blood Pressure Mean 85 105 Blood Pressure Position Pulse Oximetry 96 97 97 Oxygen Delivery Method Sepsis Recent Fever Within 48 Hours Sepsis New/Unexplained Change in Mental Status Sepsis Action Taken by Nursing 09/28/20 22:06 09/28/20 22:15 09/28/20 22:30 Temperature Temperature Source Pulse Rate 106 H 107 H Pulse Rate from SpO2 Sensor 107 H 107 H Pulse Rhythm Respiratory Rate 18 27 H 27 H Respiratory Effort / Characteristics Non-Labored Respiratory Depth Respiratory Pattern Blood Pressure 123/78 122/76 Blood Pressure Mean 93 91 Blood Pressure Position Pulse Oximetry 100 96 95 Oxygen Delivery Method Room Air Sepsis Recent Fever Within 48 Hours Sepsis New/Unexplained Change in Mental Status Sepsis Action Taken by Nursing 09/28/20 22:45 09/28/20 22:50 09/28/20 23:00 Temperature Temperature Source Pulse Rate 112 H 107 H Pulse Rate from SpO2 Sensor 111 H 107 H Pulse Rhythm Respiratory Rate 21 18 29 H Respiratory Effort / Characteristics Non-Labored Respiratory Depth Respiratory Pattern Blood Pressure 108/83 122/82 Blood Pressure Mean 91 95 Blood Pressure Position Pulse Oximetry 97 99 96 Oxygen Delivery Method Room Air Sepsis Recent Fever Within 48 Hours Sepsis New/Unexplained Change in Mental Status Sepsis Action Taken by Nursing 09/28/20 23:01 09/28/20 23:15 09/28/20 23:16 Temperature Temperature Source Pulse Rate 113 H 106 H 117 H Pulse Rate from SpO2 Sensor 113 H 107 H 114 H Pulse Rhythm Respiratory Rate 29 H 28 H 26 H Respiratory Effort / Characteristics Respiratory Depth Respiratory Pattern Blood Pressure 135/89 Blood Pressure Mean 104 Blood Pressure Position Pulse Oximetry 97 97 98 Oxygen Delivery Method Sepsis Recent Fever Within 48 Hours Sepsis New/Unexplained Change in Mental Status Sepsis Action Taken by Nursing 09/28/20 23:30 09/28/20 23:31 09/28/20 23:45 Temperature Temperature Source Pulse Rate 108 H 108 H 113 H Pulse Rate from SpO2 Sensor 109 H 108 H 113 H Pulse Rhythm Respiratory Rate 31 H 31 H 32 H Respiratory Effort / Characteristics Respiratory Depth Respiratory Pattern Blood Pressure 139/97 127/90 Blood Pressure Mean 111 102 Blood Pressure Position Pulse Oximetry 98 97 97 Oxygen Delivery Method Sepsis Recent Fever Within 48 Hours Sepsis New/Unexplained Change in Mental Status Sepsis Action Taken by Nursing 09/28/20 23:46 09/29/20 00:00 09/29/20 00:01 Temperature Temperature Source Pulse Rate 114 H 120 H 119 H Pulse Rate from SpO2 Sensor 114 H 119 H 120 H Pulse Rhythm Respiratory Rate 31 H 29 H 24 Respiratory Effort / Characteristics Respiratory Depth Respiratory Pattern Blood Pressure 142/91 H Blood Pressure Mean 108 Blood Pressure Position Pulse Oximetry 97 96 97 Oxygen Delivery Method Sepsis Recent Fever Within 48 Hours Sepsis New/Unexplained Change in Mental Status Sepsis Action Taken by Nursing 09/29/20 00:15 09/29/20 00:16 09/29/20 00:30 Temperature Temperature Source Pulse Rate 128 H 130 H 130 H Pulse Rate from SpO2 Sensor 127 H 129 H 129 H Pulse Rhythm Respiratory Rate 41 H 33 H 27 H Respiratory Effort / Characteristics Respiratory Depth Respiratory Pattern Blood Pressure 129/84 118/67 Blood Pressure Mean 99 84 Blood Pressure Position Pulse Oximetry 97 97 98 Oxygen Delivery Method Sepsis Recent Fever Within 48 Hours Sepsis New/Unexplained Change in Mental Status Sepsis Action Taken by Nursing 09/29/20 00:31 Temperature Temperature Source Pulse Rate 128 H Pulse Rate from SpO2 Sensor 128 H Pulse Rhythm Respiratory Rate 42 H Respiratory Effort / Characteristics Respiratory Depth Respiratory Pattern Blood Pressure Blood Pressure Mean Blood Pressure Position Pulse Oximetry 98 Oxygen Delivery Method Sepsis Recent Fever Within 48 Hours Sepsis New/Unexplained Change in Mental Status Sepsis Action Taken by Detention Medications Current Medication List: was personally reviewed by me Laboratory Data Attestation: I reviewed the patient's lab results. Result diagrams: 09/29/20 07:12 09/29/20 07:12 Lab Results 09/28/20 09/28/20 09/28/20 Range/Units 19:30 19:30 19:50 WBC 6.77 (4.8-10.8) K/uL RBC 4.20 (4.2-5.4) M/uL Hgb 12.7 (12.0-16.0) g/dL Hct 37.5 (37-47) % MCV 89.3 (80-100) fL MCH 30.2 (25-34) pg MCHC 33.9 (32-36) g/dL RDW Std Deviation 41.7 (36.4-46.3) fL RDW Coeff of Tammi 12.9 (11.5-14.5) % Plt Count 255 (130-400) K/uL MPV 9.5 (7.4-10.4) fL Immature Gran % (Auto) 0.6 % Neut % (Auto) 63.7 % Lymph % (Auto) 29.5 % [place] % (Auto) 5.2 % Eos % (Auto) 0.6 % Baso % (Auto) 0.4 % Neut # (Auto) 4.31 (1.4-6.5) K/uL Lymph # (Auto) 2.00 (1.2-3.4) K/uL [place] # (Auto) 0.35 (0.11-0.59) K/uL Eos # (Auto) 0.04 (0-0.5) K/uL Baso # (Auto) 0.03 (0-0.2) K/uL Immature Gran # (Auto) 0.04 H (0.00-0.02) K/uL PT (9.0-12.0) Seconds INR (0.9-1.1) APTT (21.0-31.0) Seconds PTT Ratio Sodium (136-145) mmol/L Potassium (3.5-5.1) mmol/L Chloride (98-107) mmol/L Carbon Dioxide (21-32) mmol/L Anion Gap (3-11) BUN (7-18) mg/dl Creatinine (0.6-1.2) mg/dl Est Cr Clr Drug Dosing ml/min Est GFR ( Amer) ml/min Est GFR (Non-Af Amer) ml/min BUN/Creatinine Ratio (10-20) Glucose (70-99) mg/dl Lactate (0.4-2.0) mmol/L Calcium (8.5-10.1) mg/dl Magnesium (1.8-2.4) mg/dl Total Bilirubin (0.2-1) mg/dl AST (15-37) U/L ALT (12-78) U/L Alkaline Phosphatase (45-117) U/L Total Protein (6.4-8.2) gm/dl Albumin (3.4-5.0) gm/dl Globulin (2.5-4.0) gm/dl Albumin/Globulin Ratio (0.9-2) Lipase (73-393) U/L Procalcitonin (0-0.5) ng/ml Urine Color Yellow Urine Appearance Clear (Clear) Urine pH >= 9.0 H (4.5-7.5) Ur Specific [place] 1.014 (1.000-1.030) Urine Protein Negative (Negative) Urine Glucose (UA) Negative (Negative) Urine Ketones Negative (Negative) Urine Blood Negative (Negative) Urine Nitrite Negative (Negative) Urine Bilirubin Negative (Negative) Urine Urobilinogen Negative (Negative) Ur Leukocyte Esterase Negative (Negative) Urine Test Negative (Negative) COVID-19 Eval Order SARS-CoV-2 (PCR) (Negative) 09/28/20 09/28/20 09/28/20 Range/Units 19:50 19:50 20:06 WBC (4.8-10.8) K/uL RBC (4.2-5.4) M/uL Hgb (12.0-16.0) g/dL Hct (37-47) % MCV (80-100) fL MCH (25-34) pg MCHC (32-36) g/dL RDW Std Deviation (36.4-46.3) fL RDW Coeff of Tammi (11.5-14.5) % Plt Count (130-400) K/uL MPV (7.4-10.4) fL Immature Gran % (Auto) % Neut % (Auto) % Lymph % (Auto) % [place] % (Auto) % Eos % (Auto) % Baso % (Auto) % Neut # (Auto) (1.4-6.5) K/uL Lymph # (Auto) (1.2-3.4) K/uL [place] # (Auto) (0.11-0.59) K/uL Eos # (Auto) (0-0.5) K/uL Baso # (Auto) (0-0.2) K/uL Immature Gran # (Auto) (0.00-0.02) K/uL PT 9.8 (9.0-12.0) Seconds INR 1.0 (0.9-1.1) APTT 26.5 (21.0-31.0) Seconds PTT Ratio 1.0 Sodium 137 (136-145) mmol/L Potassium 3.9 (3.5-5.1) mmol/L Chloride 105 (98-107) mmol/L Carbon Dioxide 27 (21-32) mmol/L Anion Gap 5.0 (3-11) BUN 8 (7-18) mg/dl Creatinine 0.64 (0.6-1.2) mg/dl Est Cr Clr Drug Dosing 149.0 ml/min Est GFR ( Amer) 143.7 ml/min Est GFR (Non-Af Amer) 124.0 ml/min BUN/Creatinine Ratio 11.8 (10-20) Glucose 83 (70-99) mg/dl Lactate (0.4-2.0) mmol/L Calcium 8.9 (8.5-10.1) mg/dl Magnesium 2.1 (1.8-2.4) mg/dl Total Bilirubin 0.5 (0.2-1) mg/dl AST 79 H (15-37) U/L ALT 119 H (12-78) U/L Alkaline Phosphatase 103 (45-117) U/L Total Protein 7.5 (6.4-8.2) gm/dl Albumin 3.2 L (3.4-5.0) gm/dl Globulin 4.3 H (2.5-4.0) gm/dl Albumin/Globulin Ratio 0.7 L (0.9-2) Lipase 154 (73-393) U/L Procalcitonin 0.11 (0-0.5) ng/ml Urine Color Urine Appearance (Clear) Urine pH (4.5-7.5) Ur Specific [place] (1.000-1.030) Urine Protein (Negative) Urine Glucose (UA) (Negative) Urine Ketones (Negative) Urine Blood (Negative) Urine Nitrite (Negative) Urine Bilirubin (Negative) Urine Urobilinogen (Negative) Ur Leukocyte Esterase (Negative) Urine Test (Negative) COVID-19 Eval Order SARS-CoV-2 (PCR) (Negative) 09/28/20 09/28/20 09/28/20 Range/Units 20:06 20:20 20:20 WBC (4.8-10.8) K/uL RBC (4.2-5.4) M/uL Hgb (12.0-16.0) g/dL Hct (37-47) % MCV (80-100) fL MCH (25-34) pg MCHC (32-36) g/dL RDW Std Deviation (36.4-46.3) fL RDW Coeff of Tammi (11.5-14.5) % Plt Count (130-400) K/uL MPV (7.4-10.4) fL Immature Gran % (Auto) % Neut % (Auto) % Lymph % (Auto) % [place] % (Auto) % Eos % (Auto) % Baso % (Auto) % Neut # (Auto) (1.4-6.5) K/uL Lymph # (Auto) (1.2-3.4) K/uL [place] # (Auto) (0.11-0.59) K/uL Eos # (Auto) (0-0.5) K/uL Baso # (Auto) (0-0.2) K/uL Immature Gran # (Auto) (0.00-0.02) K/uL PT (9.0-12.0) Seconds INR (0.9-1.1) APTT (21.0-31.0) Seconds PTT Ratio Sodium (136-145) mmol/L Potassium (3.5-5.1) mmol/L Chloride (98-107) mmol/L Carbon Dioxide (21-32) mmol/L Anion Gap (3-11) BUN (7-18) mg/dl Creatinine (0.6-1.2) mg/dl Est Cr Clr Drug Dosing ml/min Est GFR ( Amer) ml/min Est GFR (Non-Af Amer) ml/min BUN/Creatinine Ratio (10-20) Glucose (70-99) mg/dl Lactate 1.2 (0.4-2.0) mmol/L Calcium (8.5-10.1) mg/dl Magnesium (1.8-2.4) mg/dl Total Bilirubin (0.2-1) mg/dl AST (15-37) U/L ALT (12-78) U/L Alkaline Phosphatase (45-117) U/L Total Protein (6.4-8.2) gm/dl Albumin (3.4-5.0) gm/dl Globulin (2.5-4.0) gm/dl Albumin/Globulin Ratio (0.9-2) Lipase (73-393) U/L Procalcitonin (0-0.5) ng/ml Urine Color Urine Appearance (Clear) Urine pH (4.5-7.5) Ur Specific [place] (1.000-1.030) Urine Protein (Negative) Urine Glucose (UA) (Negative) Urine Ketones (Negative) Urine Blood (Negative) Urine Nitrite (Negative) Urine Bilirubin (Negative) Urine Urobilinogen (Negative) Ur Leukocyte Esterase (Negative) Urine Test (Negative) COVID-19 Eval Order Covid19 at [facility] SARS-CoV-2 (PCR) NEGATIVE (Negative) Administered Medications Gabapentin (Gabapentin 600 Mg Tab) 600 mg PO TID [facility] Stop: 10/29/20 08:59 Last Admin: 09/29/20 08:55 Dose: 600 mg Documented by: [id number] Piperacillin Sod/Tazobactam (Sod 3.375 gm/ Dextrose) 115 mls @ 28.75 mls/hr IV Q8H [facility]; Protocol Stop: 10/01/20 01:59 Last Admin: 09/29/20 10:42 Dose: 28.8 mls/hr Documented by: [id number] Infusion: 09/29/20 07:11 Dose: 0 mls/hr Documented by: [id number] Infusion: 09/29/20 03:58 Dose: 28.8 mls/hr Documented by: [id number] Infusion: 09/29/20 02:57 Dose: 0 mls/hr Documented by: [id number] Admin: 09/29/20 02:10 Dose: 28.8 mls/hr Documented by: [id number] Montelukast Sodium (Montelukast Sodium 10 Mg Tablet) 10 mg PO QAM MONIQUE Stop: 10/29/20 08:59 Last Admin: 09/29/20 08:55 Dose: 10 mg Documented by: [id number] Morphine Sulfate (Morphine Sulfate 2 Mg/Ml Carp) 2 mg IV Q30M PRN PRN Reason: Chest Pain Stop: 10/13/20 01:30 Last Admin: 09/29/20 12:39 Dose: 2 mg Documented by: [id number] Admin: 09/29/20 08:56 Dose: 2 mg Documented by: [id number] Admin: 09/29/20 06:20 Dose: 2 mg Documented by: [id number] Admin: 09/29/20 04:56 Dose: 2 mg Documented by: [id number] Admin: 09/29/20 02:23 Dose: 2 mg Documented by: [id number] Discontinued Medications Acetaminophen (Acetaminophen 500 Mg Tab) 1,000 mg PO NOW STA Stop: 09/28/20 23:11 Last Admin: 09/28/20 23:15 Dose: 1,000 mg Documented by: [id number] Sodium Chloride (Nss 1000ml) 1,000 mls @ 999 mls/hr IV .Q1H1M MONIQUE Stop: 09/28/20 20:42 Last Infusion: 09/28/20 21:48 Dose: 0 mls/hr Documented by: [id number] Admin: 09/28/20 20:39 Dose: 999 mls/hr Documented by: [id number] Sodium Chloride (Nss 1000ml) 1,000 mls @ 999 mls/hr IV .Q1H1M MONIQUE Stop: 09/28/20 21:42 Last Infusion: 09/29/20 01:01 Dose: 0 mls/hr Documented by: [id number] Admin: 09/28/20 22:48 Dose: 999 mls/hr Documented by: [id number] Piperacillin Sod/Tazobactam Sod (Zosyn) 4.5 gm in 120 mls @ 240 mls/hr IV NOW ONE Stop: 09/28/20 20:11 Last Infusion: 09/28/20 21:16 Dose: 0 mls/hr Documented by: [id number] Admin: 09/28/20 20:38 Dose: 240 mls/hr Documented by: [id number] Sodium Chloride (Nss 1000ml) 1,000 mls @ 999 mls/hr IV .Q1H1M ONE Stop: 09/29/20 01:01 Last Infusion: 09/29/20 01:40 Dose: 0 mls/hr Documented by: [id number] Admin: 09/29/20 00:36 Dose: 999 mls/hr Documented by: [id number] Ioversol (Optiray 320 100ml) 94 ml IV ONCE ONE Stop: 09/28/20 21:22 Last Admin: 09/28/20 21:22 Dose: 94 ml Documented by: [id number] Ioversol (Optiray 320 125ml) 125 ml IV ONCE ONE Stop: 09/29/20 03:27 Last Admin: 09/29/20 03:27 Dose: 90 ml Documented by: [id number] Morphine Sulfate (Morphine Sulfate 4 Mg/Ml 1 Ml Carp\Vial) 4 mg IV NOW STA Stop: 09/28/20 20:47 Last Admin: 09/28/20 21:38 Dose: 4 mg Documented by: [id number] Morphine Sulfate (Morphine Sulfate 2 Mg/Ml Carp) 2 mg IV NOW STA Stop: 09/29/20 00:02 Last Admin: 09/29/20 00:36 Dose: 2 mg Documented by: [id number] Imaging Data Radiologist's Impression: Abdomen/Pelvis CT 09/28/20 20:33 CT OF THE ABDOMEN AND PELVIS WITH CONTRAST CLINICAL HISTORY: R flank/ab pain, fever COMPARISON STUDY: None. TECHNIQUE: Following IV administration of 94 mL of Optiray, axial images of the abdomen and pelvis were obtained from the lung bases to the proximal femurs. Images were reviewed in the axial, sagittal, and coronal planes. IV contrast was administered without complication. Automated exposure control was utilized for the study. A dose lowering technique was utilized adhering to the principles of ALARA. CT DOSE: 678.14 mGy.cm FINDINGS: Lung bases are unremarkable. No pneumatosis, free air or portal venous gas is present. There is suspected hepatic steatosis. Borderline splenomegaly is noted. The adrenal glands, kidneys and pancreas are normal. There is no biliary ductal dilatation status post cholecystectomy. No urinary calculi are identified. There is no hydronephrosis. The caliber and wall thickness of small and large bowel are normal. The appendix is normal. There is no lymphadenopathy. Major vasculature is patent. No acute fracture or suspicious lesion is identified within the visualized skeletal structures. Trace fluid within the pelvis is likely physiologic. IMPRESSION: 1. No acute process within the abdomen or pelvis. 2. No bowel obstruction. Normal appendix. 3. Suspected hepatic steatosis. ACT 112: Negative or not required by law. Electronically signed by: David Kinsey M.D. 09/29/2020 7:34 AM Discharge Plan Visit Data Chief Complaint: Abdominal Pain Stated Complaint: ABDOMINAL AIN, BACK PAIN, FLANK PAIN, FEVER ED Provider: Jose Churchlil Discharge Problem: Acute flank pain, Fever, Transaminitis Patient Disposition: Admitted As Inpatient Discharge Instructions Interventions: ED Discharge Assessment Last Done: 09/29/20 01:16 Discharge Problem: Fever Qualifiers: Fever type: unspecified Qualified Code(s): R50.9 - Fever, unspecified
[2020-09-28] MEDS ORDERED: PIPERACILL/TAZOBAC CONSULT ACTIVE PRN (19:42)
[2020-09-28] MEDS ORDERED: PIPERACILLIN/TAZOBACTAM 4.5 GM/120 ML BAG IV ONE (19:42)
[2020-09-28] MEDS ORDERED: SODIUM CHLORIDE 0.9% 1000ML 1,000 ML IV SCH ×2 (19:45→20:42)
--- NOTE | 2020-09-28 20:01 | XRay Report ---
XR chest 1V portable CLINICAL HISTORY: SEPSIS COMPARISON STUDY: 09/20/2020 FINDINGS: The cardiac and mediastinal contours are normal. There is no evidence of focal pulmonary co nsolidation. There is no evidence of failure. No pleural effusions are visualized.[ IMPRESSION: No active disease in the chest. ACT 112: Negative or not required by law. Electronically signed by: Omid Franco M.D. 09/28/2020 8:00 PM
[2020-09-28 20:02] LABS: Hematocrit (blood only) 37.5 % (37-47); Hemoglobin 12.7 g/dL (12.0-16.0); Mean Corpuscular Hemoglobin 30.2 pg (25-34); Mean Corpuscular Hgb Conc 33.9 g/dL (32-36); Mean Corpuscular Volume 89.3 fL (80-100); Mean Platelet Volume 9.5 fL (7.4-10.4); Platelet Count 255 K/uL (130-400); RDW Coefficient of Variation 12.9 % (11.5-14.5); RDW Standard Deviation 41.7 fL (36.4-46.3); White Blood Count 6.77 K/uL (4.8-10.8)
[2020-09-28 20:05] LABS: Appearance Urine Clear (Clear); Bilirubin Urine Negative (Negative); Blood Urine Negative (Negative); Color Urine Yellow; Glucose Urine UA Negative (Negative); Ketones Urine Negative (Negative); Leukocyte Esterase Urine Negative (Negative); Nitrite Urine Negative (Negative); Protein Urine Negative (Negative); Specific Gravity Urine 1.014 (1.000-1.030); Urobilinogen Urine Negative (Negative); pH Urine >= 9.0 (4.5-7.5)
[2020-09-28 20:06] LABS: Pregnancy Test, Urine Negative (Negative)
[2020-09-28 20:19] LABS: Potassium 3.9 mmol/L (3.5-5.1)
[2020-09-28 20:20] LABS: Albumin Level 3.2 gm/dl (3.4-5.0); BUN Creatinine Ratio 11.8 (10-20); Calcium 8.9 mg/dl (8.5-10.1); Est GFR (African American) 143.7 ml/min; Magnesium 2.1 mg/dl (1.8-2.4)
[2020-09-28 20:22] LABS: Albumin Globulin Ratio 0.7 (0.9-2); Basophils # (auto) 0.03 K/uL (0-0.2); Basophils % (auto) 0.4 %; Bilirubin,Total 0.5 mg/dl (0.2-1); Eosinophils # (auto) 0.04 K/uL (0-0.5); Eosinophils % (auto) 0.6 %; Globulin 4.3 gm/dl (2.5-4.0); Immature Granulocytes # (auto) 0.04 K/uL (0.00-0.02); Immature Granulocytes % (auto) 0.6 %; Lymphocytes % (auto) 29.5 %; Monocytes # (auto) 0.35 K/uL (0.11-0.59); Monocytes % (auto) 5.2 %; Neutrophils # (auto) 4.31 K/uL (1.4-6.5); Neutrophils % (auto) 63.7 %; Total Protein 7.5 gm/dl (6.4-8.2)
[2020-09-28 20:32] LABS: Partial Thromboplastin Time 26.5 Seconds (21.0-31.0); Prothrombin Time 9.8 Seconds (9.0-12.0)
[2020-09-28] MEDS ORDERED: MoRPHine SULFATE 4 MG/ML 1 ML CARP\\VIAL IV STA (20:46)
[2020-09-28] MEDS ORDERED: OPTIRAY 320 100ml IV ONE (21:21)
[2020-09-28] MEDS ORDERED: ACETAMINOPHEN 500 MG TAB PO STA (23:10)
[2020-09-29] MEDS ORDERED: MoRPHine SULFATE 2 MG/ML CARP IV STA (00:01)
[2020-09-29] MEDS ORDERED: SODIUM CHLORIDE 0.9% 1000ML 1,000 ML IV ONE (00:01)
--- NOTE | 2020-09-29 00:40 | History & Physical Report ---
Date of Service September 29, 2020 Assessment & Plan (1) Abdominal pain: Sury is a 25 yo woman who was referred to the emergency department by her PCP for evaluation severe RUQ pain, nausea and diarrhea. - etiology uncertain. Differential includes viral gastroenteritis (given thickened small intestine on CT scan), although severe abdominal and back pain is uncommon. Patient has already had her gallbladder removed - remaining biliary tract appeared normal on CT (per STAT RAD). Lipase level ordered to assess for pancreatic inflammation, although organ appeared normal on CT. Given presence of free fluid in the pelvic region, I will order GC/Chlamydia testing (although patient denied any vaginal discharge). - I placed order for CT of L-spine given midline tenderness and R paraspinal tenderness - serial exams - Morphine prn for pain (avoid acetaminophen due to elevated LFTs). zofran prn for nausea (2) Elevated LFTs: - ALT at 119, AST at 79 - denies ETOH use - has been using Tylenol prn; avoid further acetaminophen use - repeat CMP in am (3) Tachycardia: - etiology thought to be due to pain - Wells score is 1.5, low risk. I will check a d-dimer. If elevated chest CTA indicated to assess for PE - pain control as above Dvt ppx: low risk Dispo: Med/Surg with tele (tachycardia) Diet: Regular Code: Full History of Present Illness Primary Care Provider: Patsy Garcia MD Sury is a 25 yo woman who was directed to the [place] emergency department by her PCP for further evaluation and treatment of severe RUQ pain. Sury states the pain began about 3 days ago and has progressive since onset. It wraps about her flank to the midback. She denies any trauma to the region. 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 She say movement (in any direction) and deep inspiration make the pain worse. It does not seem to be affected by meal consumption. Her LMP was 3 weeks ago. She was on an OCP in the past, but discontinued it 2 months ago. She cannot recall any recent tick bites. Of note, she was seen in the [facility] ED on 09/20/20 for headache - she has been taking Tylenol prn since then. Surg Hx: she did have her gallbladder removed in 2018 Sx: She denies any etoh use. Family Hx: Crohns disease in several relatives In the ED, she was afebrile, HR was elevated to 120s. Her CBC was normal. Procal not elevated. Lactate not elevated. UA showing a pH > 9, but otherwise unremarkable. She did have a urine culture from her ED visit on 09/20/20 that finalized as growing several species of skin claudia. Urine preg negative.. Blood cultures were drawn. Coas WNL. ALT elevated to 119, AST to 79. COVID 19 neg. CXR showing no active disease. Cat scan of abdomen and pelvis with contrast showing no stones, borderline thickening of of small bowel loops, possibly due to an enteritis. Normal appearing appendix. Mild free fluid in uteral cul-de-sac and bilateral adnexal region. She was given 1g of IV tylenol, 6mg IV morphine, a dose of Zosyn and started on IVF. Allergies Allergy/AdvReac Type Severity Reaction Status Date / Time ibuprofen Allergy hives/heart Verified 09/28/20 17:58 racing indomethacin Allergy hives Verified 09/28/20 17:58 promethazine Allergy hives Verified 09/28/20 17:58 shellfish derived Allergy Swelling Verified 09/28/20 17:58 of lips and throat tizanidine Allergy hives Verified 09/28/20 17:58 Home Medications Medication Instructions Recorded Confirmed Type gabapentin 600 mg PO TID 01/22/20 09/28/20 History rizatriptan 10 mg tablet 10 mg PO DIRECTED PRN MDD 30 03/02/20 09/28/20 History MG/24 HOURS albuterol sulfate [Ventolin HFA] 2 puff INHALATION DIRECTED PRN 03/24/20 09/28/20 History montelukast 10 mg tablet 10 mg PO QAM #30 tab 04/05/20 09/28/20 Rx lgeqocp-ieulyfhotlnwq-xtsucuhk 2 tab PO Q6H PRN 09/20/20 09/28/20 History [Excedrin Extra Strength] multivitamin 1 tab PO QAM 09/20/20 09/28/20 History Past Med/Surg History Medical History Asthma Cholecystectomy planned Trigeminal neuralgia Surgical History No pertinent past surgical history Cowan teeth extracted Family History Father Myocardial infarction Cancer Crohn's disease Grandfather (Paternal) Myocardial infarction Cancer Lung cancer Crohn's disease Denies family history of Ovarian cancer Prostate cancer Breast cancer Colorectal cancer Social History Smoking Status: Never smoker Second Hand Exposure: Yes; Hx Alcohol Use: No Hx Substance Use: No Preferred Language: Setswana Communication Ability: Effective Visual Impairment: No Limitations Hearing Ability: Normal 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 Required: No Beliefs That Will Affect Care: None marital status: Current Living Situation: Spouse current occupational status: employed current occupation: [employer] How many Children do You have: 0 Feels Safe at Home: Yes Safety Concerns: Feels Safe At This Time Childhood Exposure to Second-Hand Smoke: Yes during the past year weight has: remained stable Dental Care, Regularly: Yes Physical Activity Frequency: 1-2 Times per Week Seatbelt Use: always Sunscreen Use: Yes Assistive Devices: None Review of Systems Ear, Nose, Mouth, Throat: no nasal congestion Respiratory: no cough Gastrointestinal: + abdominal pain, + nausea and + diarrhea/loose stools (non- bloody); no vomiting Genitourinary: no dysuria, no vaginal discharge and no vaginal itching Integumentary: no rash Physical Exam Constitutional: WD/WN, vitals as above + acute distress (secondary to pain ) and cooperative Eyes: + anicteric sclerae ENMT: external ear and nose normal, oropharynx normal Neck: normal visual inspection and trachea midline Respiratory: normal respiratory effort, lungs clear to auscultation Cardiovascular: Rate/Rhythm: regular rhythm and + tachycardic Heart Sounds: normal S1 and normal S2 Extremities: no pedal edema Gastrointestinal (Abdomen): Inspection/Auscultation: abdomen normal to inspection and normal bowel sounds; abdomen not distended P ercussion/Palpation: + abdomen tender (RUQ, epigastric area) and abdomen soft Musculoskeletal: + midline tenderness of lumbar spine. Exquisite R paraspinal muscle tenderness Skin: no rashes, warm and dry no ecchymosis Neurologic: moves all extremities Psychiatric: A+Ox3, euthymic affect Results & Data Results & Data ([facility]) Vital Signs (Past 12 Hours) Vital Signs Temp Pulse Resp BP Pulse Ox 09/28/20 22:50 18 99 09/28/20 22:06 18 100 09/28/20 22:01 121 H 22 97 09/28/20 22:00 116 H 21 145/85 H 97 09/28/20 21:45 120/68 96 09/28/20 21:42 128/71 96 09/28/20 21:15 120 H 126/80 98 09/28/20 21:00 119 H 18 134/85 99 09/28/20 20:45 112 H 28 H 138/82 98 09/28/20 20:34 118 H 22 143/87 H 98 09/28/20 20:30 115 H 28 H 100 09/28/20 20:28 109 H 18 100 09/28/20 20:15 115 H 22 09/28/20 20:00 113 H 30 H 09/28/20 19:45 112 H 26 H 09/28/20 19:25 37.4 C 116 H 18 177/99 H 100 09/28/20 18:48 38.4 C H 117 H 18 149/90 H 99 Supervising Physician Co-Signing Physician Notes Attending addendum: I have physically seen this patient, have supervised the medical residents activities, and agree with the H&P unless as otherwise noted. Assessment and Plan: Abdominal pain- Unclear etiology. Differential includes but not limited to: Viral gastroenteritis, referred back pain, pelvic inflammation associated with free fluid CT lumbar spine ordered Acetaminophen not given due to abnormal LFTs Morphine as needed as noted Abnormal LFTs- ALT 119, AST 79 CT abdomen pelvis: History of cholecystectomy, normal biliary tract No suggestion of myalgias, and denies tick exposures. Remaining orders and notations as noted Resident Activity Tracking Resident Involvement: Resident Care Provided Care Provided: Adult Hospital Medicine
[2020-09-29] MEDS ORDERED: ONDANSETRON INJ 2 MG/ML 2 ML VIAL IV PRN (01:31)
[2020-09-29] MEDS: PIPERACILLIN/TAZOBACTAM 3.375 GM in DEXTROSE 5% 100 ML IV SCH ×3 (02:10→18:26)
[2020-09-29] MEDS: MoRPHine SULFATE 2 MG/ML CARP IV PRN ×5 (02:23→12:39)
[2020-09-29 03:00] LABS: D Dimer 1150 ug/L FEU (0-500)
[2020-09-29] MEDS ORDERED: OPTIRAY 320 125ml IV ONE (03:26)
--- NOTE | 2020-09-29 06:53 | CT Scan Report ---
CT OF THE LUMBAR SPINE CLINICAL HISTORY: intractable pain COMPARISON STUDY: No previous studies for comparison. TECHNIQUE: Helical axial images of the lumbar spine were obtained. Sagittal and coronal reconstruct ions were viewed. Automated exposure control was utilized for the study. A dose lowering technique was utilized adhering to the principles of ALARA. FINDINGS: Incidental note is made of contrast within the collecting systems and ureters from recent c ontrast-enhanced CT. Alignment of the lumbar spine is anatomic. Vertebral body heights are maintained . There is no acute fracture. No osseous lesion is noted within the lumbar spine by CT. The facet maite nts are intact. The sacroiliac joints are intact. Central canal and neural foramen are suboptimally a ssessed by CT but there is no evidence for significant central canal or neural foraminal stenosis. IMPRESSION: No acute lumbar spine fracture or subluxation. ACT 112: Negative or not required by law. Electronically signed by: David Kinsey M.D. 09/29/2020 6:52 AM
--- NOTE | 2020-09-29 07:15 | CT Scan Report ---
CHEST CTA for PULMONARY ARTERIES CT DOSE: 1075.48 mGy.cm HISTORY: Right-sided CHEST PAIN, R/O PE TECHNIQUE: Multiaxial CT images of the chest were performed following the intravenous administration of contrast to evaluate the pulmonary arteries. Maximal intensity projection images were also obtaine d. A dose lowering technique was utilized adhering to the principles of ALARA. COMPARISON STUDY: None. FINDINGS: Normal caliber thoracic aorta with no evidence for dissection. The heart is normal in size. No filling defects within the pulmonary to suggest a pulmonary embolus. Small amount of soft tissue density within the anterior mediastinum favors residual thymus given the patient's age. No mediastina l hilar lymphadenopathy. There is mild thickening of the mid to distal esophagus with mild paraesopha geal fat stranding/edema. This is nonspecific but could represent a mild esophagitis. Please refer th e recent abdomen and pelvis CT for further evaluation of the abdominal structures. Prior cholecystect keanu. No fractures within the visualized osseous structures. The central airways are patent. No pneumo thorax. No focal lung consolidations to suggest pneumonia. IMPRESSION: 1. No evidence for pulmonary embolus. 2. Mild thickening of the mid to distal esophagus with mild paraesophageal edema/fat stranding. This raises the possibility of a mild esophagitis. ACT 112: Negative or not required by law. Electronically signed by: Justin Carroll M.D. 09/29/2020 7:14 AM
[2020-09-29 07:31] LABS: Basophils # (auto) 0.02 K/uL (0-0.2); Basophils % (auto) 0.2 %; Eosinophils # (auto) 0.01 K/uL (0-0.5); Eosinophils % (auto) 0.1 %; Hematocrit (blood only) 36.8 % (37-47); Hemoglobin 12.3 g/dL (12.0-16.0); Immature Granulocytes # (auto) 0.05 K/uL (0.00-0.02); Immature Granulocytes % (auto) 0.5 %; Lymphocytes # (auto) 1.54 K/uL (1.2-3.4); Lymphocytes % (auto) 16.9 %; Mean Corpuscular Hemoglobin 29.6 pg (25-34); Mean Corpuscular Hgb Conc 33.4 g/dL (32-36); Mean Corpuscular Volume 88.7 fL (80-100); Mean Platelet Volume 9.5 fL (7.4-10.4); Monocytes # (auto) 0.42 K/uL (0.11-0.59); Monocytes % (auto) 4.6 %; Neutrophils # (auto) 7.06 K/uL (1.4-6.5); Neutrophils % (auto) 77.7 %; Platelet Count 227 K/uL (130-400); RDW Coefficient of Variation 12.9 % (11.5-14.5); RDW Standard Deviation 41.8 fL (36.4-46.3); Red Blood Count 4.15 M/uL (4.2-5.4)
--- NOTE | 2020-09-29 07:35 | CT Scan Report ---
CT OF THE ABDOMEN AND PELVIS WITH CONTRAST CLINICAL HISTORY: R flank/ab pain, fever COMPARISON STUDY: None. TECHNIQUE: Following IV administration of 94 mL of Optiray, axial images of the abdomen and pelvis we re obtained from the lung bases to the proximal femurs. Images were reviewed in the axial, sagittal, and coronal planes. IV contrast was administered without complication. Automated exposure control wa s utilized for the study. A dose lowering technique was utilized adhering to the principles of ALARA . CT DOSE: 678.14 mGy.cm FINDINGS: Lung bases are unremarkable. No pneumatosis, free air or portal venous gas is present. Ther e is suspected hepatic steatosis. Borderline splenomegaly is noted. The adrenal glands, kidneys and p ancreas are normal. There is no biliary ductal dilatation status post cholecystectomy. No urinary perla culi are identified. There is no hydronephrosis. The caliber and wall thickness of small and large erlinda wel are normal. The appendix is normal. There is no lymphadenopathy. Major vasculature is patent. No acute fracture or suspicious lesion is identified within the visualized skeletal structures. Trace fl uid within the pelvis is likely physiologic. IMPRESSION: 1. No acute process within the abdomen or pelvis. 2. No bowel obstruction. Normal appendix. 3. Suspected hepatic steatosis. ACT 112: Negative or not required by law. Electronically signed by: David Kinsey M.D. 09/29/2020 7:34 AM
[2020-09-29 08:12] LABS: Alanine Aminotransferase 100 U/L (12-78); Albumin Globulin Ratio 0.7 (0.9-2); Albumin Level 2.7 gm/dl (3.4-5.0); Alkaline Phosphatase 95 U/L (45-117); Aspartate Aminotransferase 56 U/L (15-37); BUN Creatinine Ratio 8.8 (10-20); Bilirubin,Total 0.9 mg/dl (0.2-1); Blood Urea Nitrogen 4 mg/dl (7-18); Calcium 8.2 mg/dl (8.5-10.1); Carbon Dioxide 23 mmol/L (21-32); Chloride 107 mmol/L (98-107); Creatinine Clr Calc Pharmacy 202.6 ml/min; Est GFR (African American) > 150.0 ml/min; Est GFR (Non-African American) 136.3 ml/min; Globulin 3.8 gm/dl (2.5-4.0); Glucose 93 mg/dl (70-99); Potassium 3.9 mmol/L (3.5-5.1); Sodium 136 mmol/L (136-145); Total Protein 6.5 gm/dl (6.4-8.2)
--- NOTE | 2020-09-29 08:49 | Hospitalist Progress Note ---
Date of Service September 29, 2020 Assessment & Plan (1) Abdominal pain: Sury is a 25 y/o F w/ asthma and trigeminal neuralgia who was referred to the emergency department by her PCP for evaluation severe RUQ and R flank pain x 3 days w fever, in context of fever, myalgia, and headache a week ago. RUQ abdominal pain, severe with fever, elevated LFT - etiology uncertain. considered tickborne illness (myalgia, fever, headache, arthralgia, elevated LFTs), biliary tract stone, pyelo, nephrolithiasis (sean w/ alkaline urine), ciso pathology, viral illness - prelim read of CT abd had suggested some thickening of small intestine - possible gastroenteritis - s/p cholecystectomy in past, but stone in biliary duct can cause symptoms - ct abd showed some splenomegaly. no renal abnormality noted. otherwise wnl - infectious: viral GI vs tickborne vs peritonitis (less likely given this presentation). ordered tickborne labs. Lyme IgM pos. started empiric doxy IV 100 mg BID. - febrile on admission, afebrile during subsequent day - no leukocytosis. blood cultures pending - continue empiric Zosyn for presumed GI infection - ciso: hx of R ovarian cysts. + mild free fluid in pelvis on CT. GC/chlamydia testing ordered - CT L spine wnl - lipase wnl - morphine prn for pain. zofran prn for nausea - continue workup and serial exams. defer pelvic US and ERCP at this time elevated LFTs - ALT at 119, AST at 79. stable on repeat - denies ETOH use - has been using Tylenol prn; avoid further acetaminophen use - follow CMP tachycardia - etiology thought to be due to pain - considered PE, but CTA was negative - pain control as above esophagitis - per CTA - patient's symptoms appear to be more on right abd/flank as opposed to epigastric though she did have some TTP there - eos not elevated. w/ hx of asthma, eosinophilic esophagitis can occur - considered in differential above - no intervention at this time Dvt ppx: scds Dispo: Med/Surg with tele Diet: Regular Code: Full (2) Elevated LFTs: (3) Tachycardia: Admission and Anticipated Discharge Date Admission Date: September 29, 2020 Supervising Physician Co-Signing Physician Notes Resident Physician Supervision Note: I independently interviewed and examined the patient and verified the langley history and physical, reviewed labs and image studies and agree with resident Dr. Jimenez findings and care plan. Subjective Abd pain is ruq, wraps around to back. 6/10, better than before. worse w/ moving and eating. Hx of ovarian cysts on r side. Onset of ruq pain was 3-4 days, worsening. Hx cholecystectomy, symptoms felt similar. Denies substance use. Denies trauma. Dad had kidney cancer at 35. Denies pelvic symptom or hx sti. No dysuria. Patient lives in a [facility] area and visits the [facility] on the weekends. She and her deny any tick bites or new rashes. Per senior resident encounter, patient has had some L hip pain since yesterday. Review of Systems Review of Systems: Constitutional: subj fever 1-2 hours ago. Eyes: Denies blurry vision, vision changes ENT: Denies sore throat, sinus pain Cardiovascular: Denies chest pain, palpitations Respiratory: Denies shortness of breath Gastrointestinal: Denies vomiting, constipation. mild nausea. no diarrhea since yesterday Genitourinary: Denies urinary symptoms including dysuria Musculoskeletal: Denies weakness, muscle aches/pain, joint aches/pain Neurological: Denies numbness, tingling, focal weakness. 7/10 headache frontal, her usual headache. Physical Exam Physical Exam: General: Grossly A&O. NAD. Cooperative. Appears uncomfortable. HEENT: Atraumatic, normocephalic. Pulm: CTAB. -wheezes, -rales, -rhonchi. No respiratory distress. Cardiac: Tachycardic rate, regular rhythm, -mrg. Radial pulses intact and symmetrical. 2+ LE edema to knee x2-3wks. Abdominal: Soft nondistended. TTP at periumb and R abd and R flank. No guarding or rigidity. Musculoskeletal: TTP R lumbar paraspinal. Results & Data Results & Data ([facility]) Vital Signs (Past 12 Hours) Vital Signs Temp Pulse Pulse Resp BP BP Pulse Ox 09/29/20 07:40 37.5 C 119 H 18 120/71 93 09/29/20 07:13 113 H 09/29/20 04:22 124 H 09/29/20 04:05 36.9 C 109 H 18 118/72 95 09/29/20 01:54 09/29/20 01:49 38.0 C H 134 H 18 128/69 94 09/29/20 01:47 18 94 09/29/20 01:16 37.2 C 130 H 18 116/85 100 09/29/20 01:00 127 H 29 H 134/75 94 09/29/20 00:50 131 H 36 H 129/79 95 09/29/20 00:48 135 H 18 96 09/29/20 00:31 128 H 42 H 98 09/29/20 00:30 130 H 27 H 118/67 98 09/29/20 00:16 130 H 33 H 97 09/29/20 00:15 128 H 41 H 129/84 97 09/29/20 00:01 119 H 24 97 09/29/20 00:00 120 H 29 H 142/91 H 96 09/28/20 23:46 114 H 31 H 97 09/28/20 23:45 113 H 32 H 127/90 97 09/28/20 23:31 108 H 31 H 97 09/28/20 23:30 108 H 31 H 139/97 98 09/28/20 23:16 117 H 26 H 98 09/28/20 23:15 106 H 28 H 135/89 97 09/28/20 23:01 113 H 29 H 97 09/28/20 23:00 107 H 29 H 122/82 96 09/28/20 22:50 18 99 09/28/20 22:45 112 H 21 108/83 97 09/28/20 22:30 107 H 27 H 122/76 95 09/28/20 22:15 106 H 27 H 123/78 96 09/28/20 22:06 18 100 09/28/20 22:01 121 H 22 97 09/28/20 22:00 116 H 21 145/85 H 97 09/28/20 21:45 120/68 96 09/28/20 21:42 128/71 96 09/28/20 21:15 120 H 126/80 98 09/28/20 21:00 119 H 18 134/85 99 09/28/20 20:45 112 H 28 H 138/82 98 Pulse Ox 09/29/20 07:40 09/29/20 07:13 09/29/20 04:22 09/29/20 04:05 09/29/20 01:54 94 09/29/20 01:49 09/29/20 01:47 09/29/20 01:16 09/29/20 01:00 09/29/20 00:50 09/29/20 00:48 09/29/20 00:31 09/29/20 00:30 09/29/20 00:16 09/29/20 00:15 09/29/20 00:01 09/29/20 00:00 09/28/20 23:46 09/28/20 23:45 09/28/20 23:31 09/28/20 23:30 09/28/20 23:16 09/28/20 23:15 09/28/20 23:01 09/28/20 23:00 09/28/20 22:50 09/28/20 22:45 09/28/20 22:30 09/28/20 22:15 09/28/20 22:06 09/28/20 22:01 09/28/20 22:00 09/28/20 21:45 09/28/20 21:42 09/28/20 21:15 09/28/20 21:00 09/28/20 20:45 Resident Activity Tracking Resident Involvement: Resident Care Provided Care Provided: Adult Hospital Medicine
[2020-09-29] MEDS: GABAPENTIN 600 MG TAB PO SCH ×3 (08:55→20:45)
[2020-09-29] MEDS: MONTELUKAST SODIUM 10 MG TABLET PO SCH (08:55)
[2020-09-29 11:45] LABS: Lyme Ab IgG w/WB Rflx Negative (Negative)
[2020-09-29 11:51] LABS: Lyme Ab IgM w/WB Rflx Positive (Negative)
[2020-09-29 13:19] LABS: Hepatitis B Surf Ag Rflx Conf Neg (Neg)
[2020-09-29 13:47] LABS: Hepatitis C IgG 13Yrs+Old_Rflx Neg (Neg)
[2020-09-29] MEDS: DOXYCYCLINE HYCLATE 100 MG in DEXTROSE 5% 100 ML IV SCH (16:10)
--- NOTE | 2020-09-29 20:55 | Billing Data ---
Date of Service September 29, 2020 Coding Level of Care Code 69947 OBS Care - Level 3
[2020-09-30] MEDS: DOXYCYCLINE HYCLATE 100 MG in DEXTROSE 5% 100 ML IV SCH ×2 (01:11→13:36)
[2020-09-30] MEDS: PIPERACILLIN/TAZOBACTAM 3.375 GM in DEXTROSE 5% 100 ML IV SCH ×2 (03:16→10:46)
[2020-09-30 06:33] LABS: Hematocrit (blood only) 38.8 % (37-47); Hemoglobin 12.9 g/dL (12.0-16.0); Mean Corpuscular Hemoglobin 29.7 pg (25-34); Mean Corpuscular Hgb Conc 33.2 g/dL (32-36); Mean Corpuscular Volume 89.2 fL (80-100); Mean Platelet Volume 9.5 fL (7.4-10.4); Platelet Count 277 K/uL (130-400); RDW Standard Deviation 42.5 fL (36.4-46.3); Red Blood Count 4.35 M/uL (4.2-5.4); White Blood Count 7.03 K/uL (4.8-10.8)
[2020-09-30 07:29] LABS: Alanine Aminotransferase 103 U/L (12-78); Albumin Globulin Ratio 0.7 (0.9-2); Albumin Level 2.9 gm/dl (3.4-5.0); Alkaline Phosphatase 111 U/L (45-117); Aspartate Aminotransferase 51 U/L (15-37); Bilirubin,Total 0.6 mg/dl (0.2-1); Blood Urea Nitrogen 11 mg/dl (7-18); Calcium 8.9 mg/dl (8.5-10.1); Carbon Dioxide 25 mmol/L (21-32); Chloride 109 mmol/L (98-107); Creatinine Clr Calc Pharmacy 204.4 ml/min; Est GFR (African American) > 150.0 ml/min; Est GFR (Non-African American) 137.3 ml/min; Globulin 4.3 gm/dl (2.5-4.0); Glucose 92 mg/dl (70-99); Potassium 4.1 mmol/L (3.5-5.1); Sodium 137 mmol/L (136-145); Total Protein 7.2 gm/dl (6.4-8.2)
[2020-09-30 08:11] LABS: Basophils # (auto) 0.04 K/uL (0-0.2); Basophils % (auto) 0.6 %; Eosinophils # (auto) 0.18 K/uL (0-0.5); Eosinophils % (auto) 2.6 %; Immature Granulocytes # (auto) 0.05 K/uL (0.00-0.02); Immature Granulocytes % (auto) 0.7 %; Lymphocytes # (auto) 3.64 K/uL (1.2-3.4); Lymphocytes % (auto) 51.8 %; Monocytes # (auto) 0.51 K/uL (0.11-0.59); Monocytes % (auto) 7.3 %; Neutrophils # (auto) 2.61 K/uL (1.4-6.5); RBC Morphology Unremarkable
--- NOTE | 2020-09-30 08:20 | Hospitalist Progress Note ---
Date of Service September 30, 2020 Assessment & Plan (1) Abdominal pain: Sury is a 25 y/o F w/ asthma and trigeminal neuralgia who was referred to the emergency department by her PCP for evaluation severe RUQ and R flank pain x 3 days w fever, in context of fever, myalgia, and headache a week ago. RUQ abdominal pain, severe with fever, elevated LFT - etiology uncertain. 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 no renal abnormality noted. otherwise wnl - infectious: viral GI vs tickborne vs peritonitis (less likely given this presentation). ordered tickborne labs. Lyme IgM pos. started empiric doxy IV 100 mg BID. - febrile on admission, afebrile during subsequent day - no leukocytosis. 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 + mild free fluid in pelvis on CT. GC/chlamydia testing ordered - CT L spine wnl - lipase wnl - morphine prn for pain. zofran prn for nausea - continue workup and serial exams. defer pelvic US and ERCP at this time elevated LFTs - ALT at 119, AST at 79. stable on repeat - denies ETOH use - has been using Tylenol prn; avoid further acetaminophen use - follow CMP tachycardia - etiology thought to be due to pain - considered PE, but CTA was negative - pain control as above esophagitis - per CTA - patient's symptoms appear to be more on right abd/flank as opposed to epigastric though she did have some TTP there - eos not elevated. w/ hx of asthma, eosinophilic esophagitis can occur - considered in differential above - no intervention at this time Dvt ppx: scds Dispo: Med/Surg with tele Diet: Regular Code: Full (2) Elevated LFTs: - ALT at 119, AST at 79 - denies ETOH use - has been using Tylenol prn; avoid further acetaminophen use - repeat CMP in am (3) Tachycardia: - etiology thought to be due to pain - Wells score is 1.5, low risk. I will check a d-dimer. If elevated chest CTA indicated to assess for PE - pain control as above Dvt ppx: low risk Dispo: Med/Surg with tele (tachycardia) Diet: Regular Code: Full Admission and Anticipated Discharge Date Admission Date: September 29, 2020 Subjective Patient is feeling better. Pain at RUQ/flank is 2/10 and described as a sore, mild today. She has R frontal HARDIN, feels like her usual trigeminal neuralgia HAs. L hip pain goes down medial thigh to knee, no groin involvement. no numb/ting. No incontinence or urinary symptoms. She also has mild pain at L anterior thigh adductor region that radiates downmedial thigh to knee. No numbness/tingling. This started 2 days ago and had wrapped around L hip to back, but none today Review of Systems Review of Systems: See HPI No blurry vision No fever/chills Physical Exam Physical Exam: General: Grossly A&O. NAD. Cooperative. HEENT: Atraumatic, normocephalic. Pulm: CTAB. -wheezes, -rales, -rhonchi. No respiratory distress. Cardiac: RRR, -mrg. Radial pulses intact and symmetrical. Abdominal: Nontender, nondistended, soft. No TTP to RUQ or R flank/paraspinal. Msk: No hip TTP. TTP at L anterior thigh just distal to inguinal ligament. Neuro: Neg SLR. No facial droop. Results & Data Results & Data ([facility]) Vital Signs (Past 12 Hours) Vital Signs Temp Pulse Pulse Resp BP Pulse Ox 09/30/20 04:32 36.6 C 76 18 122/62 96 09/29/20 23:45 63 09/29/20 23:02 36.6 C 72 16 132/83 97
[2020-09-30] MEDS: GABAPENTIN 600 MG TAB PO SCH ×2 (09:12→13:36)
[2020-09-30] MEDS: MONTELUKAST SODIUM 10 MG TABLET PO SCH (09:13)
[2020-09-30] MEDS ORDERED: RIZATRIPTAN BENZOATE 10 MG TAB PO PRN (10:06)
--- NOTE | 2020-09-30 11:31 | Electrocardiogram Report ---
Test Reason : Blood Pressure : / mmHG Vent. Rate : 111 BPM Atrial Rate : 111 BPM P-R Int : 150 ms QRS Dur : 076 ms QT Int : 326 ms P-R-T Axes : 035 003 002 degrees QTc Int : 443 ms Sinus tachycardia Anterior infarct (cited on or before 28-SEP-2020) Abnormal ECG When compared with ECG of 22-JAN-2020 10:49, No significant change was found Confirmed by Tremaine Benavidez ([id number]) on 09/30/2020 11:31:05 AM Referred By: Patsy Garcia Confirmed By:Tremaine Benavidez
[2020-09-30] MEDS ORDERED: AMPICILLIN/SULBACTAM SOD 1,500 MG in 0.9 % SODIUM CHLORIDE 100 ML IV SCH (12:00)
[2020-09-30 17:02] LABS: Chlamydia Trach RNA NOT DETECTED (NOT DETECTED); GC (Neis gonorrhoeae) RNA NOT DETECTED (NOT DETECTED)
--- NOTE | 2020-10-01 00:01 | Discharge Summary ---
Date of Service September 30, 2020 Admission HPI Per Admitting Provider Sury is a 25 yo woman who was directed to the [place] emergency department by her PCP for further evaluation and treatment of severe RUQ pain. Sury states the pain began about 3 days ago and has progressive since onset. It wraps about her flank to the midback. She denies any trauma to the region. 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 She say movement (in any direction) and deep inspiration make the pain worse. It does not seem to be affected by meal consumption. Her LMP was 3 weeks ago. She was on an OCP in the past, but discontinued it 2 months ago. She cannot recall any recent tick bites. Of note, she was seen in the [facility] ED on 09/20/20 for headache - she has been taking Tylenol prn since then. Surg Hx: she did have her gallbladder removed in 2018 Sx: She denies any etoh use. Family Hx: Crohns disease in several relatives In the ED, she was afebrile, HR was elevated to 120s. Her CBC was normal. Procal not elevated. Lactate not elevated. UA showing a pH > 9, but otherwise unremarkable. She did have a urine culture from her ED visit on 09/20/20 that finalized as growing several species of skin claudia. Urine preg negative.. Blood cultures were drawn. Coas WNL. ALT elevated to 119, AST to 79. COVID 19 neg. CXR showing no active disease. Cat scan of abdomen and pelvis with contrast showing no stones, borderline thickening of of small bowel loops, possibly due to an enteritis. Normal appearing appendix. Mild free fluid in uteral cul-de-sac and bilateral adnexal region. She was given 1g of IV tylenol, 6mg IV morphine, a dose of Zosyn and started on IVF. Admission Exam Per Admitting Provider Constitutional: WD/WN, vitals as above + acute distress (secondary to pain ) and cooperative Eyes: + anicteric sclerae ENMT: external ear and nose normal, oropharynx normal Neck: normal visual inspection and trachea midline Respiratory: normal respiratory effort, lungs clear to auscultation Cardiovascular: Rate/Rhythm: regular rhythm and + tachycardic Heart Sounds: normal S1 and normal S2 Extremities: no pedal edema Gastrointestinal (Abdomen): Inspection/Auscultation: abdomen normal to inspection and normal bowel sounds; abdomen not distended Percussion/Palpation: + abdomen tender (RUQ, epigastric area) and abdomen soft Musculoskeletal: + midline tenderness of lumbar spine. Exquisite R paraspinal muscle tenderness Skin: no rashes, warm and dry no ecchymosis Neurologic: moves all extremities Psychiatric: A+Ox3, euthymic affect Principal Diagnosis right upper quadrant abdominal pain Discharge Exam General: Grossly A&O. NAD. Cooperative. HEENT: Atraumatic, normocephalic. Pulm: CTAB. -wheezes, -rales, -rhonchi. No respiratory distress. Cardiac: RRR, -mrg. Radial pulses intact and symmetrical. Abdominal: Nontender, nondistended, soft. No TTP to RUQ or R flank/paraspinal. Msk: No hip TTP. TTP at L anterior thigh just distal to inguinal ligament. Neuro: Neg SLR. No facial droop. Discharge Data Allergies Allergy/AdvReac Type Severity Reaction Status Date / Time ibuprofen Allergy hives/heart Verified 09/28/20 17:58 racing indomethacin Allergy hives Verified 09/28/20 17:58 promethazine Allergy hives Verified 09/28/20 17:58 shellfish derived Allergy Swelling Verified 09/28/20 17:58 of lips and throat tizanidine Allergy hives Verified 09/28/20 17:58 Consultations 09/29/20 00:01 ED Decision to Admit Stat Ordered Studies 09/28/20 CT abd pelvis IV con only Urgent IMPRESSION: 1. No acute process within the abdomen or pelvis. 2. No bowel obstruction. Normal appendix. 3. Suspected hepatic steatosis. 09/29/20 01:31 CT lumbar spine wo con Routine IMPRESSION: No acute lumbar spine fracture or subluxation. 09/29/20 03:01 CT angio chest PE protocol IMPRESSION: 1. No evidence for pulmonary embolus. 2. Mild thickening of the mid to distal esophagus with mild paraesophageal edema/fat stranding. This raises the possibility of a mild esophagitis. Hospital Course (1) Abdominal pain: Sury is a 25 y/o F w/ asthma and t.rigeminal neuralgia who was referred to the emergency department by her PCP for evaluation severe RUQ and R flank pain x 3 days w fever, in context of fever, myalgia, and headache a week prior. RUQ abdominal pain, severe with fever, tachycardia, and elevated LFTs - symptoms improved significantly after IV antibiotics - doxycycline - etiology uncertain. 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 no renal abnormality noted. otherwise wnl - infectious: viral GI vs tickborne vs peritonitis (less likely given this presentation). - ordered tickborne labs. Lyme IgM pos. started empiric doxy IV 100 mg BID. Dispo plan is PO doxy hyclate 100 mg BID for total of 7 days treatment course. Lyme western blot pending. Please f/u results. - febrile on admission, afebrile during subsequent day - no leukocytosis. blood cultures neg prelim at 48 hours - continue empiric Zosyn for presumed GI infection - employment advisor: hx of R ovarian cysts. + mild free fluid in pelvis on CT. GC/chlamydia testing ordered. deferred pelvic imaging at this time - CT L spine wnl - lipase wnl elevated LFTs - ALT at 119, AST at 79. stable on repeat - denies ETOH use - has been using Tylenol prn at home - follow CMP in 1 month tachycardia, resolved - etiology thought to be due to pain - considered PE, but CTA was negative esophagitis - per CTA - patient's symptoms appear to be more on right abd/flank as opposed to epigastric though she did have some TTP there - eos not elevated. w/ hx of asthma, eosinophilic esophagitis can occur - considered in differential above - no intervention at this time Code: Full (2) Elevated LFTs: (3) Tachycardia: Total Time Total Time Spent Total Time Spent (In Minutes): See attending documentation. Discharge Plan Discharge Items Patient Disposition: Home - Self-Care Reason For Visit: INTRACTALE PAIN Discharge Diagnosis: Empiric Lyme Disease Activity: Per Instructions section Non-emergency contact: Primary Care Provider Call non-emergency contact if: you have any medication questions and your pain is not controlled Follow-up/Referrals: Patsy Garcia MD [Primary Care Provider] - 10/05/20 2:15 pm (hosp f/u in 1 week. [facility] 2nd floor confidential secretary will be phoning you with a time and date of your follow up appt. Office was closed at your time of discharge. If you are unable to keep said appt, please phone Dr. Rich office to reschedule. Your appointment is with the physician child welfare assistant, Lorrie Hernandez.) Diet: Regular Addtl Attending Provider Instructions: Ms. Garcia, Maynor were admitted to [facility] for severe right upper quadrant abdominal pain. You had fever and a fast heart rate on arrival as well. CT abdomen/pelvis and CTA chest were performed as part of the workup and did not find any obvious source for your symptoms. You were treated with IV antibiotics. Your symptoms improved significantly during the hospital admission. There is concern that Lyme disease may have been a contributing factor to your stay and you are being prescribed 7 more days of Doxycycline. Please take this medication twice a day for the next 7 days. You can take this with food if it upsets your stomach. Please be wary of the sun and wear sunscreen/protective clothing as the medication can make your skin more sensitive to sunlight. Please follow up with your primary care doctor in 1 week. Please have a complete metabolic panel rechecked in 1 month because your liver enzymes were slightly elevated. You will be continued on doxycycline 100mg PO twice a day (for presumed Lyme infection) for a total of 7 more days. Please contact your PCP (or ED if symptoms severe) if you develop persistent fever or the abdominal pain worsens as this may be indicative of the medication regimen not being effective. standard return precautions If you develop any new or worsening symptoms including fever, chills, sweats, chest pain, chest pressure, difficulty breathing, uncontrolled nausea/vomiting, rash, wheezing, passing out or nearly passing out, bleeding, black/bloody bowel movements, or other new or concerning symptoms please call your primary care physician, or call 911 for re-evaluation in the emergency department if you are very concerned. Pending Studies at Discharge: Yes Stand-Alone Forms: [facility], Smoking Cessation Medications and DC Order Prescriptions: New doxycycline hyclate 100 mg capsule 100 mg PO BID 21 Days Qty: 42 RF: 0 Continued montelukast 10 mg tablet 10 mg PO QAM Qty: 30 RF: 5 rizatriptan 10 mg tablet 10 mg PO DIRECTED MDD 30 MG/24 HOURS PRN (Reason: Migraine Headache) RF: 0 gabapentin 600 mg Tablet 600 mg PO TID RF: 0 albuterol sulfate [Ventolin HFA] 90 mcg/actuation HFA aerosol inhaler 2 puff INHALATION DIRECTED PRN (Reason: Cough,Shortness Of Breath Or Wheezing) RF: 0 multivitamin Tablet 1 tab PO QAM RF: 0 Excedrin Extra Strength 250-250-65 mg Tablet 2 tab PO Q6H PRN (Reason: Headache) RF: 0 Discharge Orders: Discharge Order (Routine); Ordered 09/30/20 Ordered By: John Peralta Admission Data Admit Date/Time: 09/29/20 00:36 Attending Provider: Jody Mcnally Admit Provider: Bridgette Aguilar Primary Care Provider: Patsy Garcia Other Providers: Stephen Morel Other Interventions: Discharge Summary Assessment (RN) Last Done: 09/30/20 17:07 Supervising Physician Co-Signing Physician Notes Resident Physician Supervision Note: I independently interviewed and examined the patient and verified the langley history and physical, reviewed labs and image studies and agree with resident Dr. Jimenez findings and care plan. Improved symptoms with IV doxy. IgM positive for lyme but IgG neg. sent out IgM bands. follow results. Treat with total 10 days of doxycycline Resident Activity Tracking Resident Involvement: Resident Care Provided Care Provided: Adult Hospital Medicine
[2020-10-01 22:07] LABS: Babesia microti DNA Not Detected (Not Detected); Babesia microti IgG <1:64 titer (<1:64); Ehrlichia chaff DNA Bld Not Detected (Not Detected)
[2020-10-02 03:26] LABS: 18KDIGG Band NON-REACTIVE; 23KDIGG Band NON-REACTIVE; 23KDIGM Band REACTIVE; 28KDIGG Band NON-REACTIVE; 30KDIGG Band NON-REACTIVE; 39KDIGG Band NON-REACTIVE; 39KDIGM Band NON-REACTIVE; 41KDIGG Band NON-REACTIVE; 41KDIGM Band REACTIVE; 45KDIGG Band NON-REACTIVE; 58KDIGG Band NON-REACTIVE; 66KDIGG Band NON-REACTIVE; 93KDIGG Band NON-REACTIVE; Lyme Antibodies, WB IgG NEGATIVE (NEGATIVE); Lyme Antibodies, WB IgM POSITIVE (NEGATIVE)
--- NOTE | 2020-10-03 20:11 | Communication Note ---
Date of Service: October 03, 2020 Additional labwork resulted. Lyme Western Blot is positive for IgM bands 23 and 41. Per CDC (https://www.cdc.gov/lyme/diagnosistesting/index.html), patient f ulfills criteria for acute lyme infection because she also had positive EDWAR and the symptom timeline is consistent. Anaplasma DNA also tested positive. Patient's symptoms included fever, myalgia, headache, tachycardia, severe RUQ pain, and possible/vague arthralgia (L hip pain). Patient's treatment course will be extended from total of 7 days to total of 28 days for presumed early disseminated lyme that is not erythema migrans. The prescription for PO doxycycline 100 mg BID has been resent for 21 days to start after patient finishes the previous week of treatment. I will update patient by phone and will cc this note to PCP.
[2020-10-04 15:01] LABS: Ehrlichia chaff IgG Ab <1:64 (<1:64); Ehrlichia chaff IgM Ab <1:20 (<1:20); Hepatitis A Antibody IgM NON-REACTIVE (NON-REACTIVE); Hepatitis B Core Antibody IgM NON-REACTIVE (NON-REACTIVE); RMSF IgG Ab Not Detected (Not Detected); RMSF IgM Ab Not Detected (Not Detected)
== END 2020-09-30 17:26 | disposition home or self-care (01) ==
LOC: ED 18:43 → 2N 18:43 → SUATTDRO 09-29 00:36 → 2N 09-29 01:16